=== PATIENT | female | born 1980 | race Caucasian/White ===

== ENCOUNTER 2019-10-03 15:42 | Emergency (ER) | payer OTHER, SELFPAY ==
--- NOTE | ~2019-10-03 | CT_ITS ---
EXAMINATION: CT lumbar spine wo con DATE: 10/03/2019 17:50 INDICATION: Low back pain TECHNIQUE: Computed tomography (CT) of the lumbar spine was performed without intravenous contrast. T he dose-length product was 1206.07 mGy-cm. Automated exposure control and iterative reconstruction te nique were employed. COMPARISON: No prior studies for comparison. FINDINGS: Vertebral body and disc heights are preserved. There is dextroscoliosis. No fracture or tra umatic malalignment. No evidence for spondylolisthesis. No paraspinal soft tissue abnormality. IMPRESSION: 1. No acute abnormality of the lumbar spine. Reviewed, dictated and finalized at location A.
[2019-10-03 16:50] VITALS: BP 137/76; PULSE 122; RESP 20; TEMP 36.9; O2SAT 99
--- NOTE | 2019-10-03 17:08 | ED.BACK ---
HPI - Back Pain/Injury General Chief Complaint: Back Pain/Injury Stated Complaint: back pain Time Seen by Provider: 10/03/19 17:14 Source: patient Mode of arrival: ambulatory Limitations: no limitations History of Present Illness HPI Narrative: 39-year-old woman comes in today complaining of sudden low back pain that started when she bent over the gestation. Patient states that she has had some back pain problems in the past but is gone many years without any difficulties. She states that at that time she had a painful send station shoot down both legs but she has had no lower extremity symptoms since. She has had no incontinence, weakness, numbness, tingling or difficulty walking. Her pain is somewhat positional. She has no history of back surgery however she did have back trauma when she was younger. She denies dysuria, hematuria, fever, nausea, vomiting. MD elicited complaint: back pain Pertinent past history: prior back pain Onset (ago): hour(s) (3) Timing: constant Severity: severe Similar Symptoms Previously: Yes Quality: sharp Location: lumbar spine Radiation: none Exacerbating factors: supine positioning Relieving factors: sitting upright and other ( standing) Context: bending Treatments prior to arrival: NSAIDS Work related injury: No Related Data Home Medications Medication Instructions Recorded Confirmed [id number] 1 tablet PO TID 01/08/19 10/03/19 cyclobenzaprine 10 mg PO TID 01/08/19 10/03/19 escitalopram oxalate 10 mg PO DAILY 01/08/19 10/03/19 naproxen 500 mg PO BID 01/08/19 10/03/19 rizatriptan 10 mg PO HS 01/08/19 10/03/19 Allergies Allergy/AdvReac Type Severity Reaction Status Date / Time aspirin Allergy Intermediate Swelling Unverified 06/10/18 11:08 Review of Systems Constitutional: Constitutional: Denies chills and Denies fever(s) Cardiovascular: Cardiovascular: Denies chest pain and Denies radiating jaw, neck or arm pain Respiratory: Respiratory: Denies cough, Denies dyspnea and Denies wheezing Gastrointestinal: Gastrointestinal: Denies abdominal pain, Denies nausea and Denies vomiting Genitourinary: Genitourinary: Denies nocturia and Denies dysuria Musculoskeletal: Musculoskeletal: Reports as per HPI, Reports back pain, Denies arthralgias and Denies joint swelling Integumentary/Breasts: Skin/Breast: Denies pruritus, Denies erythema and Denies rash Neurologic: Reports vertigo, Reports dizziness and Reports syncope Hematologic/Lymphatic: Hematologic/Lymphatic: Denies easy bleeding and Denies easy bruising Allergic/Immunologic: Allergic/Immunologic: Denies lip swelling and Denies wheezing [facility] Social History Social History Smoking status: Never smoker Alcohol intake: current Alcohol use details: rarely Substance use: never Living arrangements: with family Exam Const: General: healthy appearing and alert Nutritional Appearance: obese Orientation/consciousness: patient oriented x3 Other: moderate acute distress HENMT: Face and sinus: normal facial exam Eyes: Conjunctivae: conjunctivae normal Pupils: Equal, round and reactive pupils present EOM: EOMs intact bilaterally Chest: Chest palpation & inspection: tenderness Resp: Effort & Inspection: normal respiratory effort and not labored Auscultation: clear to auscultation bilaterally, no rales, no rhonchi and no wheezes Cardio: Rate: regular rate Rhythm: regular rhythm Heart sounds: no murmurs Skin: General skin exam: normal color, no jaundice and no pallor Rashes: no rashes Neuro: General: patient oriented x3, moves all extremities, no focal motor deficits and CN's II-XI intact bilaterally Speech: normal speech Gait exam (Neuro): Normal gait present Other: DTRs 1+ and symmetric Bilaterally at the calcaneal tendon in the patellar tendons. Normal strength at the toes ankles and knees bilaterally. Extrem: General: normal to i
[2019-10-03 17:13] LABS: Add Urine Microscopic? YES; Appearance Urine Cloudy (Clear); Bilirubin Urine Negative (Negative); Blood Urine Negative (Negative); Color Urine Yellow (Yellow); Glucose Urine UA Negative (Negative); Ketones Urine Negative (Negative); Leukocyte Esterase Ur Negative (Negative); Nitrate Urine Negative (Negative); Protein Urine Trace (Negative); Urobilinogen Urine 0.2 mg/dL (0.2-1.0)
[2019-10-03 17:16] LABS: Pregnancy On Board Control Positive; Urine Pregnancy Test Negative
[2019-10-03 17:21] LABS: RBC Urine 0-2 /hpf (0-2); Squamous Epithelial Cell Urine Few /hpf (Few); WBC Urine 0-3 /hpf (0-3)
[2019-10-03 17:22] LABS: Amorphous Sediment Urine Moderate; Bacteria Urine 4+ /hpf
[2019-10-03 18:19] VITALS: BP 147/72
== END 2019-10-03 18:21 | disposition home or self-care (01) ==
PROVIDERS: Emergency Provider Emergency Medicine
DX: S39.012A Strain of muscle, fascia and tendon of lower back, initial encounter (principal)
CPT/HCPCS: 72131; 81001; 81025; 99283; 99284; A9270

== ENCOUNTER 2020-04-22 08:01 | Outpatient (CLI) | payer OTHER, SELFPAY ==
[2020-04-22 08:28] LABS: Basophils Absolute Auto 0.06 K/mm3 (0.00-0.10); Basophils Percent Auto 0.9 % (0.0-1.0); Eosinophils Absolute Auto 0.24 K/mm3 (0.02-0.50); Eosinophils Percent Auto 3.5 % (1.0-6.0); Hematocrit 38.9 % (35.0-49.0); Hemoglobin 13.1 g/dL (12.0-15.0); Immature Granulocyte Absolute 0.02 K/mm3 (0.00-0.00); Immature Granulocyte Percent A 0.3 % (0.0-0.0); Lymphocytes Absolute Auto 2.31 K/mm3 (1.10-4.50); Lymphocytes Percent Auto 33.9 % (18.0-42.0); Mean Corpuscular HGB Conc 33.7 g/dL (32.0-36.0); Mean Corpuscular Hemoglobin 30.9 pg (27.0-31.0); Mean Corpuscular Volume 91.7 fL (78.0-102.0); Mean Platelet Volume 9.7 fl (9.2-11.8); Monocytes Absolute Auto 0.47 K/mm3 (0.10-0.90); Monocytes Percent Auto 6.9 % (2.0-11.0); Neutrophils Absolute Auto 3.7 K/mm3 (1.7-7.2); Neutrophils Percent Auto 54.5 % (50.0-70.0); Platelet Count Result 359 K/mm3 (150-420); Red Blood Count 4.24 M/mm3 (4.20-5.40); White Blood Count 6.8 K/mm3 (4.8-10.8)
[2020-04-22 08:41] LABS: Prothrombin Time 10.4 Seconds (9.50-12.10)
[2020-04-22 08:43] LABS: Hemoglobin A1C 5.9 % (<5.7)
[2020-04-22 10:01] LABS: Alanine Aminotransferase 27 U/L (14-59); Albumin Level 3.8 g/dL (3.4-5.0); Alkaline Phosphatase 66 U/L (46-116); Anion Gap 9 mmol/L (8-16); Aspartate Amino Transferase 15 U/L (15-37); Bilirubin,Total 0.3 mg/dL (0.00-1.00); Blood Urea Nitrogen 16 mg/dL (7-18); Calcium 8.8 mg/dL (8.5-10.1); Carbon Dioxide 26 mmol/L (21-32); Chloride 105 mmol/L (98-108); Cholesterol 203 mg/dL (0-200); Estimated Glomerular Filt Rate > 60; Ferritin 35 ng/mL (8-252); Folic Acid 13.9 ng/mL (8.6->20); Free T3 2.83 pg/mL (2.18-3.98); Free T4 Free Thyroxine 0.82 ng/dL (0.76-1.46); GGT 28 U/L (5-55); Glucose 114 mg/dL (70-99); HDL Direct 59 mg/dL (40-60); Iron 88 ug/dL (50-170); LDL Cholesterol Calculated 128 mg/dL (<130); Magnesium 1.8 mg/dL (1.8-2.4); Osmolality Calculated 292 mOsm/kg (285-295); Percent Iron Saturation 28 % (12-57); Phosphorus 2.6 mg/dL (2.6-4.7); Potassium 4.4 mmol/L (3.5-5.1); Sodium 140 mmol/L (136-145); Total Protein 6.5 g/dL (6.4-8.2); Triglycerides 79 mg/dL (0-150); Uric Acid 4.9 mg/dL (2.6-6.0); Vitamin B12 321 pg/mL (193-986)
[2020-04-22 10:10] LABS: CRP < 0.2 mg/dL (0.0-0.9); Thyroid Stimulating Hormone Reflex 0.98 u/IU/mL (0.36-3.74)
[2020-04-22 10:20] LABS: Bilirubin Urine Negative (Negative); Blood Urine Negative (Negative); Color Urine Yellow (Yellow); Glucose Urine UA Negative (Negative); Ketones Urine Negative (Negative); Leukocyte Esterase Ur Negative (Negative); Nitrate Urine Negative (Negative); Protein Urine Negative (Negative); Urobilinogen Urine 0.2 mg/dL (0.2-1.0)
[2020-04-22 10:23] LABS: Add Urine Microscopic? NO; Appearance Urine Clear (Clear)
[2020-04-22 10:37] LABS: Creatinine Urine 64.03 mg/dL (40-278); MALB Creatinine Ratio 20.3 mg/g (0-30); Microalbumin Urine Random < 13.0 mg/L
[2020-04-25 06:02] LABS: CRP, High Sensitivity 2.8 mg/L (***)
[2020-04-27 02:44] LABS: Vitamin D 25 Hydroxy 10 ng/mL (30-100)
== END 2020-04-22 08:02 | disposition home or self-care (01) ==
DX: E88.81 Metabolic syndrome and other insulin resistance (principal); Z79.899 Other long term (current) drug therapy; E03.9 Hypothyroidism, unspecified; K76.0 Fatty (change of) liver, not elsewhere classified; R73.9 Hyperglycemia, unspecified; E78.5 Hyperlipidemia, unspecified; E79.0 Hyperuricemia without signs of inflammatory arthritis and tophaceous disease; E55.9 Vitamin D deficiency, unspecified; E53.8 Deficiency of other specified B group vitamins
CPT/HCPCS: 36415; 80053; 80061; 81003; 82043; 82306; 82607; 82728; 82746; 82977; 83036; 83525; 83540; 83550; 83735; 84100; 84439; 84443; 84481; 84550; 85025; 85610; 86140; 86141; 87086; 87088

== ENCOUNTER 2020-08-28 07:42 | Outpatient (CLI) | payer OTHER, SELFPAY ==
--- NOTE | ~2020-08-28 | US_ITS ---
US abdomen complete EXAMINATION: US Abdomen Complete INDICATION: Fatty liver PROCEDURE: Realtime High Resolution abdomen ultrasound. COMPARISON: No prior studies for comparison FINDINGS: Gallbladder within normal limits. No gallstones, pericholecystic fluid, gallbladder wall t hickening or biliary dilatation. Common bile duct measures 4.75 mm. Liver echotexture within normal limits without focal mass. Pancreas within normal limits. Pancreati c tail is obscured by bowel gas. Spleen is unremarkeable. Renal echotexture is within normal limits bilaterally without hydronephrosis, contour deforming mass or renal stone. Right kidney measures 9.9 cm. Left kidney measures 10.9 cm. Visualized aspects of the aorta and IVC are within normal limits. Portal vein is patent. No sonograph ic Hernandez's sign indicated by the technologist. IMPRESSION: 1: Normal abdominal ultrasound. Reviewed, dictated and finalized at location B.
--- NOTE | ~2020-08-28 | US_ITS ---
EXAMINATION: US pelvic complete w TV DATE: 08/28/2020 10:53 INDICATION: Dysmenorrhea Comparison:No prior studies for comparison. TECHNIQUE: Multiple transabdominal and endovaginal sonographic images of the pelvis performed. FINDINGS: The uterus measures 7.9 x 4.1 x 5.1 cm. The endometrial complex measures 11 mm. The right ovary measures 2.4 x 1.7 x 2.3 cm and the left ovary measures 2.5 x 2.6 x 1.7 cm. There ar e small follicles in each ovary. Normal doppler signal in both ovaries. There is no free fluid in the pelvis. There are no abnormal masses seen on either side. IMPRESSION: 1. Unremarkable pelvic ultrasound. Reviewed, dictated and finalized at location B.
== END 2020-08-28 07:43 | disposition home or self-care (01) ==
LOC: CHSIMG 07:47
PROVIDERS: Visit Provider Obstetrics & Gynecology
DX: N94.6 Dysmenorrhea, unspecified (principal); N92.0 Excessive and frequent menstruation with regular cycle
CPT/HCPCS: 76700; 76830; 76856

== ENCOUNTER 2021-09-02 08:19 | Outpatient (CLI) | payer OTHER, SELFPAY ==
[2021-09-02 09:03] LABS: Add Urine Microscopic? YES; Appearance Urine Clear (Clear); Basophils Absolute Auto 0.05 K/mm3 (0.00-0.10); Basophils Percent Auto 1.2 % (0.0-1.0); Bilirubin Urine Negative (Negative); Blood Urine Negative (Negative); Color Urine Light Yellow (Yellow); Eosinophils Absolute Auto 0.21 K/mm3 (0.02-0.50); Eosinophils Percent Auto 5.1 % (1.0-6.0); Glucose Urine UA Negative (Negative); Hematocrit 33.7 % (35.0-49.0); Hemoglobin 10.6 g/dL (12.0-15.0); Immature Granulocyte Absolute 0.01 K/mm3 (0.00-0.00); Immature Granulocyte Percent A 0.2 % (0.0-0.0); Ketones Urine Negative (Negative); Leukocyte Esterase Ur 2+ (Negative); Lymphocytes Absolute Auto 0.88 K/mm3 (1.10-4.50); Lymphocytes Percent Auto 21.2 % (18.0-42.0); Mean Corpuscular HGB Conc 31.5 g/dL (32.0-36.0); Mean Corpuscular Hemoglobin 27.1 pg (27.0-31.0); Mean Corpuscular Volume 86.2 fL (78.0-102.0); Mean Platelet Volume 9.5 fl (9.2-11.8); Monocytes Absolute Auto 0.34 K/mm3 (0.10-0.90); Monocytes Percent Auto 8.2 % (2.0-11.0); Neutrophils Absolute Auto 2.7 K/mm3 (1.7-7.2); Neutrophils Percent Auto 64.1 % (50.0-70.0); Nitrate Urine Negative (Negative); Platelet Count Result 286 K/mm3 (150-420); Protein Urine Negative (Negative); Red Blood Count 3.91 M/mm3 (4.20-5.40); Urobilinogen Urine 0.2 mg/dL (0.2-1.0); White Blood Count 4.2 K/mm3 (4.8-10.8)
[2021-09-02 09:15] LABS: Bacteria Urine Trace /hpf; INR 0.9; Prothrombin Time 10.4 Seconds (9.50-12.10); RBC Urine None seen /hpf (0-2); Squamous Epithelial Cell Urine Rare /hpf (Few)
[2021-09-02 09:32] LABS: MALB Creatinine Ratio 11.6 mg/g (0-30); Microalbumin Urine Random 32.2 mg/L
[2021-09-02 09:44] LABS: Hemoglobin A1C 5.8 % (<5.7)
[2021-09-02 10:07] LABS: Alanine Aminotransferase 23 U/L (14-59); Alkaline Phosphatase 86 U/L (46-116); Anion Gap 7 mmol/L (8-16); Aspartate Amino Transferase 19 U/L (15-37); Bilirubin,Total 0.3 mg/dL (0.00-1.00); Blood Urea Nitrogen 20 mg/dL (7-18); CRP < 0.5 mg/dL (0.0-0.9); Calcium 9.2 mg/dL (8.5-10.1); Carbon Dioxide 29 mmol/L (21-32); Chloride 106 mmol/L (98-108); Cholesterol 199 mg/dL (0-200); Estimated Glomerular Filt Rate > 60; Free T3 2.62 pg/mL (2.18-3.98); Free T4 Free Thyroxine 0.82 ng/dL (0.76-1.46); GGT 21 U/L (5-55); Glucose 106 mg/dL (70-99); HDL Direct 56 mg/dL (40-60); Iron 28 ug/dL (50-170); LDL Cholesterol Calculated 129 mg/dL (<130); Magnesium 1.8 mg/dL (1.8-2.4); Osmolality Calculated 296 mOsm/kg (285-295); Percent Iron Saturation 6 % (12-57); Phosphorus 4.3 mg/dL (2.6-4.7); Potassium 4.6 mmol/L (3.5-5.1); Sodium 142 mmol/L (136-145); Triglycerides 68 mg/dL (0-150); Uric Acid 5.4 mg/dL (2.6-6.0); Vitamin B12 260 pg/mL (193-986)
[2021-09-02 10:08] LABS: Thyroid Stimulating Hormone Reflex 1.21 u/IU/mL (0.36-3.74)
[2021-09-05 14:16] LABS: Insulin Level Total 11.5 uIU/mL (<=19.6)
[2021-09-06 03:46] LABS: Vitamin D 25 Hydroxy 29 ng/mL (30-100)
== END 2021-09-02 08:20 | disposition home or self-care (01) ==
LOC: CHSLAB 08:24
DX: R73.9 Hyperglycemia, unspecified (principal); Z79.899 Other long term (current) drug therapy; E61.1 Iron deficiency; E03.9 Hypothyroidism, unspecified; K76.0 Fatty (change of) liver, not elsewhere classified; E78.5 Hyperlipidemia, unspecified; E79.0 Hyperuricemia without signs of inflammatory arthritis and tophaceous disease
CPT/HCPCS: 36415; 80053; 80061; 81001; 82043; 82306; 82607; 82746; 82977; 83036; 83525; 83540; 83550; 83735; 84100; 84439; 84443; 84481; 84550; 85025; 85610; 86140; 87086

== ENCOUNTER 2022-03-21 09:10 | Emergency (ER) | payer OTHER, SELFPAY ==
[2022-03-21 09:19] VITALS: BP 114/66; PULSE 107; RESP 16; TEMP 36.3; O2SAT 100
[2022-03-21 09:25] VITALS: BP 114/66; PULSE 107; RESP 16; TEMP 36.3; O2SAT 100
--- NOTE | 2022-03-21 09:33 | ED.GENADULT ---
HPI - General Adult General Chief complaint: Upper Respiratory Infection Stated complaint: cough, congestion Source: patient Mode of arrival: ambulatory Limitations: no limitations History of Present Illness HPI narrative: Patient presents for evaluation of sick symptoms for the last two and a half days. Symptoms include sinus congestion, mucopurulent discharge from nares, mild sore throat and cough. She denies any fever, chills, nausea, vomiting or diarrhea. Her has similar symptoms and is being treated with prednisone and amoxicillin. She has had COVID twice in the past, with most recent episode being last year. She has a hx of breast cancer s/p mastectomy, currently in remission. No additional complaints or concerns. Related Data Home Medications Medication Instructions Recorded Confirmed jxltpzywqz-imhhilsanvwqt-[id number] 1 tablet PO TID 01/08/19 03/21/22 50 mg-325 mg-40 mg tablet atenolol 25 mg tablet 25 mg PO DAILY 03/21/22 03/21/22 ergocalciferol (vitamin D2) 1,250 1 unit PO WEEKLY 03/21/22 03/21/22 mcg (50,000 unit) capsule escitalopram oxalate 20 mg tablet 20 mg PO DAILY 03/21/22 03/21/22 tirzepatide 15 mg/0.5 mL 15 mg subcut WEEKLY 03/21/22 03/21/22 subcutaneous pen injector (Mounjaro) trazodone 50 mg tablet 100 mg PO HS 03/21/22 03/21/22 Allergies Allergy/AdvReac Type Severity Reaction Status Date / Time aspirin Allergy Intermediate Swelling Unverified 03/21/22 09:18 Review of Systems Review of Systems: CONSTITUTIONAL: Denies fever, chills, or sweats. EYES: Denies visual changes, redness, or discharge. ENT: Reports sinus congestion, mucopurulent discharge from nares and sore throat CARDIOVASCULAR: Denies chest pain, palpitations, or edema. RESPIRATORY: Reports cough. Denies SOB. GASTROINTESTINAL: Denies abdominal pain, nausea, vomiting, or diarrhea. GENITOURINARY: Denies dysuria or hematuria. SKIN: Denies rash or itching. MUSCULOSKELETAL: Denies back pain, joint pain, or myalgia. NEUROLOGIC: Denies headache, numbness, dizziness, or weakness. PSYCHIATRIC: Denies anxiety or depression. [facility] Past Medical History Medical History Breast cancer Surgical History Surgical History History of breast implant History of hysterectomy History of mastectomy Family History Family History Mother Family history non-contributory Social History Social History Smoking status: Never smoker Alcohol intake: current Alcohol use details: rarely Substance use: never Gender identity (if verbalized by the patient): Female Sexual Orientation (if Verbalized by the Patient): Straight or Heterosexual Spiritual care concerns: No Exam Narrative: GENERAL: Well-appearing, well-nourished, and in no acute distress. HEAD: Normocephalic, atraumatic. EYES: PERRLA and EOMI. ENT: Bilateral maxillary sinus tenderness. Mucopurulent discharge noted in nares bilaterally. Mucous membranes moist. Oropharynx without tonsillar hypertrophy exudate or other lesions. Hoarse voice.Bilateral TMs pearly nevarez nonbulging NECK: Supple. No adenopathy or masses. No carotid bruits or JVD CHEST: Clear to auscultation. No respiratory distress. No wheezes rales or rhonchi HEART: Regular rate and rhythm. No murmur heard. Normal peripheral pulses. ABDOMEN: Soft, nontender, nondistended, normal active bowel sounds. EXTREMITIES: Normal range of motion. No edema. SKIN: Warm, dry, no rash. NEURO: No focal deficits. Alert and oriented x3. PSYCH: Normal mood and affect. Course Course Emergency Course: This is a 41-year-old female who presented for evaluation of sick symptoms. She meets criteria for ABRS given nature of her discharge. Furthermore, she has a hx of breast
== END 2022-03-21 09:35 | disposition home or self-care (01) ==
PROVIDERS: Emergency Provider Nurse Practitioner
DX: J32.9 Chronic sinusitis, unspecified (principal); Z85.3 Personal history of malignant neoplasm of breast
CPT/HCPCS: 99213; G0463

== ENCOUNTER 2022-03-24 10:19 | Outpatient (CLI) | payer OTHER, SELFPAY ==
[2022-03-24 11:11] LABS: Influenza A QL RT-PCR Negative (Negative); Influenza B QL RT-PCR Negative (Negative); SARS-CoV-2 RNA PCR Negative (Negative)
[2022-03-24 11:13] LABS: RSV RNA, RT-PCR Negative (Negative)
== END 2022-03-24 10:20 | disposition home or self-care (01) ==
DX: R05.1 Acute cough (principal); R05.8 Other specified cough; Z20.822 Contact with and (suspected) exposure to COVID-19
CPT/HCPCS: 87637

== ENCOUNTER 2022-05-28 10:59 | Emergency (ER) | payer OTHER, SELFPAY ==
--- NOTE | ~2022-05-28 | CT_ITS ---
EXAMINATION: CT abdomen pelvis wo con DATE: 05/28/2022 12:19 INDICATION: Bilateral flank pain TECHNIQUE: Computed tomography (CT) of the abdomen and pelvis was performed without intravenous contr ast. The dose-length product (DLP) was 742.61 mGy-cm. Automated exposure control and iterative recons truction technique were employed. COMPARISON: None FINDINGS: Minimal dependent atelectasis is present in the lung bases. The heart size is normal. The l iver, spleen, pancreas, gallbladder, and adrenal glands are normal. The right kidney is unremarkable. There is a 2 mm nonobstructing stone of the left kidney. No stones are identified in the kidneys, ur eters, or bladder. No hydronephrosis or hydroureter. No pathologically enlarged abdominal or pelvic l ymph nodes are identified. No free intraperitoneal gas or evidence of bowel obstruction. A moderate v olume of colonic stool is present. The appendix is normal. There is a small umbilical hernia containi ng fat. There is mild fat stranding surrounding the urinary bladder. IMPRESSION: 1. Nonobstructing left nephrolithiasis. 2. Fat stranding surrounding the urinary bladder which could reflect cystitis. Reviewed, dictated and finalized at location A.
[2022-05-28 10:59] VITALS: BP 109/85; PULSE 112; RESP 16; TEMP 36.4; O2SAT 96
--- NOTE | 2022-05-28 11:12 | ED.FEMALEGU ---
HPI - Female Genitourinary General Chief complaint: Urogenital-Female Stated complaint: low back pain/abdominal pain/blood in urine Time Seen by Provider: 05/28/22 11:11 Source: patient Mode of arrival: ambulatory Limitations: no limitations History of Present Illness HPI Narrative: [age] year female breast cancer status post bilateral mastectomy, hysterectomy with breast reconstruction, kidney stones presents to the ER with a 6 hour history of -- hematuria without any dysuria -- bilateral flank pain with abdominal pain no fever or chills. Related Data Home Medications Medication Instructions Recorded Confirmed ergocalciferol (vitamin D2) 1,250 1 unit PO WEEKLY 03/21/22 05/28/22 mcg (50,000 unit) capsule escitalopram oxalate 20 mg tablet 20 mg PO DAILY 03/21/22 05/28/22 tirzepatide 15 mg/0.5 mL 15 mg subcut WEEKLY 03/21/22 05/28/22 subcutaneous pen injector (Mounjaro) gabapentin 300 mg capsule 300 mg PO TID 05/28/22 05/28/22 Allergies Allergy/AdvReac Type Severity Reaction Status Date / Time aspirin Allergy Intermediate Swelling Verified 05/28/22 11:09 [facility] Past Medical History Medical History (Updated 05/28/22 @ 12:45 by Camilo Leary MD) Breast cancer Surgical History Surgical History History of breast implant History of hysterectomy History of mastectomy Family History Family History Mother Family history non-contributory Social History Social History Smoking status: Never smoker Alcohol intake: current Alcohol use details: rarely Substance use: never Living arrangements: with family Gender identity (if verbalized by the patient): Female Sexual Orientation (if Verbalized by the Patient): Straight or Heterosexual Spiritual care concerns: No Course Course Emergency Course: abdominal pain/ flank pain /hematuria-- rule out kidney stone /urinary tract infection Vital Signs Vital signs: Vital Signs Temperature 36.4 C 05/28/22 10:59 Pulse Rate 112 H 05/28/22 10:59 Respiratory Rate 16 05/28/22 10:59 Blood Pressure 109/85 05/28/22 10:59 Pulse Oximetry 96 05/28/22 10:59 Oxygen Delivery Room Air 05/28/22 10:59 Temperature 36.4 C 05/28/22 11:13 Pulse Rate 112 H 05/28/22 11:13 Respiratory Rate 16 05/28/22 11:13 Blood Pressure 109/85 05/28/22 11:13 Pulse Oximetry 96 05/28/22 11:13 Oxygen Delivery Room Air 05/28/22 11:13 MDM - Female Genitourinary MDM Narrative Medical decision making narrative: urinary tract infection without any evidence of stone. no evidence of pyelonephritis. Differential Diagnosis Differential diagnosis: Likely urinary tract infection and cystitis Lab Data Attestation: I reviewed the patient's lab results. 05/28/22 11:34 05/28/22 11:34 Labs: Lab Results 05/28/22 05/28/22 05/28/22 Range/Units 11:23 11:34 11:34 WBC 8.5 (4.8-10.8) K/mm3 RBC 3.73 L (4.20-5.40) M/mm3 Hgb 11.2 L (12.0-15.0) g/dL Hct 34.4 L (35.0-49.0) % MCV 92.2 (78.0-102.0) fL MCH 30.0 (27.0-31.0) pg MCHC 32.6 (32.0-36.0) g/dL RDW 12.7 (11.6-14.4) % Plt Count 224 (150-420) K/mm3 MPV 8.8 L (9.2-11.8) fl Immature Gran % (Auto) 0.4 H (0.0-0.0) % Neut % (Auto) 81.2 H (50.0-70.0) % Lymph % (Auto) 10.6 L (18.0-42.0) % Glascock % (Auto) 5.9 (2.0-11.0) % Eos % (Auto) 1.4 (1.0-6.0) % Baso % (Auto) 0.5 (0.0-1.0) % Lymph # (Auto) 0.90 L (1.10-4.50) K/mm3 Glascock # (Auto) 0.50 (0.10-0.90) K/mm3 Eos # (Auto) 0.12 (0.02-0.50) K/mm3 Baso # (Auto) 0.04 (0.00-0.10) K/mm3 Abs Immat Gran (auto) 0.03 H (0.00-0.00) K/mm3 Absolute Neuts (auto) 6.9 (1.7-7.2) K/mm3 Absolute Nucleated RBC 0.00 (0.00-0.00) K/mm3 Nucleated RBC %
[2022-05-28 11:13] VITALS: BP 109/85; PULSE 112; RESP 16; TEMP 36.4; O2SAT 96
[2022-05-28 11:38] LABS: Basophils Absolute Auto 0.04 K/mm3 (0.00-0.10); Basophils Percent Auto 0.5 % (0.0-1.0); Eosinophils Absolute Auto 0.12 K/mm3 (0.02-0.50); Eosinophils Percent Auto 1.4 % (1.0-6.0); Hematocrit 34.4 % (35.0-49.0); Hemoglobin 11.2 g/dL (12.0-15.0); Immature Granulocyte Absolute 0.03 K/mm3 (0.00-0.00); Immature Granulocyte Percent A 0.4 % (0.0-0.0); Lymphocytes Percent Auto 10.6 % (18.0-42.0); Mean Corpuscular HGB Conc 32.6 g/dL (32.0-36.0); Mean Corpuscular Volume 92.2 fL (78.0-102.0); Mean Platelet Volume 8.8 fl (9.2-11.8); Monocytes Percent Auto 5.9 % (2.0-11.0); Neutrophils Absolute Auto 6.9 K/mm3 (1.7-7.2); Neutrophils Percent Auto 81.2 % (50.0-70.0); Platelet Count Result 224 K/mm3 (150-420); Red Blood Count 3.73 M/mm3 (4.20-5.40); Red Cell Distribution Width 12.7 % (11.6-14.4); White Blood Count 8.5 K/mm3 (4.8-10.8)
[2022-05-28 11:44] LABS: Appearance Urine Turbid (Clear); Bilirubin Urine Negative (Negative); Blood Urine 3+ (Negative); Color Urine Yellow (Yellow); Glucose Urine UA Negative (Negative); Ketones Urine Negative (Negative); Leukocyte Esterase Ur 3+ LEU/UL (Negative); Nitrate Urine Positive (Negative); Protein Urine 2+ (Negative); Specific Grav Ur 1.025 (1.010-1.020); Urobilinogen Urine 0.2 mg/dL (0.2-1.0)
[2022-05-28 11:49] LABS: Add Urine Microscopic? YES; Bacteria Urine 1+ /hpf; Squamous Epithelial Cell Urine Few /hpf (Few); WBC Urine >75 /hpf (0-3)
[2022-05-28 11:49] LABS: Lipase 46 U/L (16-77)
[2022-05-28 11:50] LABS: Prothrombin Time 10.6 Seconds (9.50-12.10)
[2022-05-28 11:52] LABS: Alanine Aminotransferase 24 U/L (14-59); Albumin Level 3.4 g/dL (3.4-5.0); Alkaline Phosphatase 66 U/L (46-116); Anion Gap 8 mmol/L (8-16); Aspartate Amino Transferase 16 U/L (15-37); Bilirubin,Total 0.4 mg/dL (0.00-1.00); Blood Urea Nitrogen 19 mg/dL (7-18); Calcium 8.8 mg/dL (8.5-10.1); Carbon Dioxide 29 mmol/L (21-32); Chloride 107 mmol/L (98-108); Estimated CRCL calculation 83 ml/min; Estimated Glomerular Filt Rate > 60; Glucose 115 mg/dL (70-99); Osmolality Calculated 301 mOsm/kg (285-295); Sodium 144 mmol/L (136-145); Total Protein 6.6 g/dL (6.4-8.2)
[2022-05-28 11:57] LABS: Lactic Acid Reflex 0.9 mmol/L (0.4-2.0)
[2022-05-28 12:50] VITALS: BP 109/85; PULSE 104; RESP 18; TEMP 36.6; O2SAT 96
[2022-05-28] MEDS: HYDROmorphone HCL INJ (*CRX) 2 MG/ML VIAL 0.5 MG IM (12:59)
[2022-05-28] MEDS: ONDANSETRON HCL ODT 4 MG TABLET PO (12:59)
== END 2022-05-28 13:05 | disposition home or self-care (01) ==
PROVIDERS: Emergency Provider Internal Medicine Critical Care Medicine
DX: N30.91 Cystitis, unspecified with hematuria (principal); R10.9 Unspecified abdominal pain; Z85.3 Personal history of malignant neoplasm of breast
CPT/HCPCS: 36415; 74176; 80053; 81001; 83605; 83690; 85025; 85610; 87086; 87088; 96372; 99284; A9270; J1170

== ENCOUNTER 2022-11-23 16:44 | Outpatient (CLI) | payer OTHER, SELFPAY ==
[2022-11-23 17:09] LABS: Appearance Urine Clear (Clear); Basophils Absolute Auto 0.06 K/mm3 (0.00-0.10); Basophils Percent Auto 1.1 % (0.0-1.0); Bilirubin Urine Negative (Negative); Blood Urine Negative (Negative); Color Urine Light Yellow (Yellow); Eosinophils Absolute Auto 0.15 K/mm3 (0.02-0.50); Eosinophils Percent Auto 2.7 % (1.0-6.0); Glucose Urine UA Negative (Negative); Hematocrit 37.4 % (35.0-49.0); Hemoglobin 12.6 g/dL (12.0-15.0); Immature Granulocyte Absolute 0.01 K/mm3 (0.00-0.00); Immature Granulocyte Percent A 0.2 % (0.0-0.0); Ketones Urine Negative (Negative); Leukocyte Esterase Ur Negative (Negative); Lymphocytes Absolute Auto 2.14 K/mm3 (1.10-4.50); Lymphocytes Percent Auto 38.4 % (18.0-42.0); Mean Corpuscular HGB Conc 33.7 g/dL (32.0-36.0); Mean Corpuscular Hemoglobin 31.7 pg (27.0-31.0); Mean Platelet Volume 9.5 fl (9.2-11.8); Monocytes Absolute Auto 0.44 K/mm3 (0.10-0.90); Monocytes Percent Auto 7.9 % (2.0-11.0); Neutrophils Absolute Auto 2.8 K/mm3 (1.7-7.2); Neutrophils Percent Auto 49.7 % (50.0-70.0); Nitrate Urine Negative (Negative); Platelet Count Result 289 K/mm3 (150-420); Protein Urine Negative (Negative); Red Blood Count 3.98 M/mm3 (4.20-5.40); Red Cell Distribution Width 12.2 % (11.6-14.4); Urobilinogen Urine 0.2 mg/dL (0.2-1.0); White Blood Count 5.6 K/mm3 (4.8-10.8)
[2022-11-23 17:14] LABS: Creatinine Urine 39.15 mg/dL (40-278); MALB Creatinine Ratio 33.2 mg/g (0-30); Microalbumin Urine Random < 13.0 mg/L
[2022-11-23 17:16] LABS: Add Urine Microscopic? NO
[2022-11-23 17:23] LABS: INR 0.9; Prothrombin Time 10.3 Seconds (9.50-12.10)
[2022-11-23 17:39] LABS: Hemoglobin A1C 5.3 % (<5.7)
[2022-11-23 17:55] LABS: Alanine Aminotransferase 21 U/L (14-59); Alkaline Phosphatase 60 U/L (46-116); Anion Gap 8 mmol/L (8-16); Aspartate Amino Transferase 19 U/L (15-37); Bilirubin,Total 0.3 mg/dL (0.00-1.00); Blood Urea Nitrogen 10 mg/dL (7-18); Calcium 9.5 mg/dL (8.5-10.1); Carbon Dioxide 29 mmol/L (21-32); Chloride 103 mmol/L (98-108); Cholesterol 208 mg/dL (0-200); Estimated Glomerular Filt Rate > 60; Ferritin 23 ng/mL (8-252); Free T3 2.62 pg/mL (2.18-3.98); Free T4 Free Thyroxine 0.78 ng/dL (0.76-1.46); GGT 20 U/L (5-55); Glucose 82 mg/dL (70-99); HDL Direct 65 mg/dL (40-60); Iron 59 ug/dL (50-170); LDL Cholesterol Calculated 129 mg/dL (<130); Osmolality Calculated 288 mOsm/kg (285-295); Percent Iron Saturation 19 % (12-57); Phosphorus 4.5 mg/dL (2.6-4.7); Potassium 4.2 mmol/L (3.5-5.1); Sodium 140 mmol/L (136-145); Thyroid Stimulating Hormone 1.88 uIU/mL (0.36-3.74); Total Protein 6.7 g/dL (6.4-8.2); Triglycerides 69 mg/dL (0-150); Uric Acid 4.3 mg/dL (2.6-6.0); Vitamin B12 302 pg/mL (193-986)
[2022-11-23 18:00] LABS: CRP < 0.5 mg/dL (0.0-0.9)
[2022-11-23 18:01] LABS: Folic Acid > 20.0 ng/mL (8.6->20)
[2022-11-26 15:25] LABS: Insulin Level Total 1.3 uIU/mL (<=19.6)
[2022-11-29 13:12] LABS: Vitamin D 25 Hydroxy 51 ng/mL (30-100)
== END 2022-11-23 16:45 | disposition home or self-care (01) ==
LOC: CHSLAB 16:51
DX: E88.81 Metabolic syndrome and other insulin resistance (principal); Z79.899 Other long term (current) drug therapy; E61.1 Iron deficiency; E03.9 Hypothyroidism, unspecified; K76.0 Fatty (change of) liver, not elsewhere classified; R73.9 Hyperglycemia, unspecified
CPT/HCPCS: 36415; 80053; 80061; 81003; 82043; 82306; 82607; 82728; 82746; 82977; 83036; 83525; 83540; 83550; 83735; 84100; 84439; 84443; 84481; 84550; 85025; 85610; 86140; 87086

== ENCOUNTER 2022-12-26 20:10 | Emergency (ER) | payer OTHER, SELFPAY ==
--- NOTE | ~2022-12-26 | CT_ITS ---
EXAMINATION: CT abdomen pelvis wo con DATE: 12/26/2022 22:17 INDICATION: pain in RIGHT FLANK.HISTORY OF STONES. hx of breast CA. TECHNIQUE: Computed tomography (CT) of the abdomen and pelvis was performed without intravenous contr ast. Automated exposure control and iterative reconstruction technique were employed. The dose-length product was 674.47 mGy-cm. COMPARISON: 05/28/2022. FINDINGS: Lower thorax: Bilateral breast reconstruction. Minimal peripheral fibrosis in the right middle lobe w ith scar laterally. Liver: Normal. Biliary/Gallbladder: Gallbladder is normal. No bile duct dilation. Pancreas: No mass or duct dilation. Spleen: Normal. Adrenals:No mass. Kidneys: No suspicious mass, obstructing stone, or hydronephrosis. Punctate nonobstructing left midpo le calcification. GI tract: No small or large bowel dilation. Normal appendix. Mesentery/Peritoneum: No ascites, mass, or free air. Retroperitoneum: No mass. Pelvis: Pelvic organs are within normal limits. Soft Tissues: Soft tissues and body wall unremarkable. Bones: No acute osseous finding. IMPRESSION: No acute abdominopelvic process detected. Reviewed, dictated and finalized at location K.
[2022-12-26 20:10] VITALS: BP 131/90; PULSE 81; RESP 20; TEMP 37.2; O2SAT 99
--- NOTE | 2022-12-26 20:32 | ED.GENADULT ---
HPI - General Adult General Chief complaint: Abdominal Pain Stated complaint: Low back pain Time Seen by Provider: 12/26/22 20:32 History of Present Illness HPI narrative: The patient is a 42-year-old woman with history of breast cancer, status post mastectomy and reconstruction, prior abdominal flap, prior hysterectomy. Has had UTIs and was seen here in May 2022 for UTI. At that time she also had a 2 mm left kidney stone in the kidney that was not causing any symptoms. She now presents with a 4 day history of lower back pain, right more than left, still present, increasing today, not associated with any other symptoms. Minimal nausea earlier, no vomiting. No abdominal or flank pain. No hematuria or dysuria or urinary urgency or frequency. No hematochezia or melena or diarrhea or constipation. No URI symptoms such as cough rhinorrhea or nasal congestion or fevers or chills or diaphoresis. She is worried about her breast cancer recurrence causing her back pain. She is also worried about perhaps a kidney stone or urinary tract infection. Related Data Home Medications Medication Instructions Recorded Confirmed ergocalciferol (vitamin D2) 1,250 1 unit PO WEEKLY 03/21/22 12/26/22 mcg (50,000 unit) capsule escitalopram oxalate 20 mg tablet 20 mg PO DAILY 03/21/22 12/26/22 tirzepatide 15 mg/0.5 mL 15 mg subcut WEEKLY 03/21/22 12/26/22 subcutaneous pen injector (Mounjaro) gabapentin 300 mg capsule 300 mg PO TID 05/28/22 12/26/22 Allergies Allergy/AdvReac Type Severity Reaction Status Date / Time aspirin Allergy Intermediate Swelling Verified 05/28/22 11:09 Review of Systems Review of Systems: All systems reviewed & are unremarkable except as noted in HPI and below Constitutional: Constitutional: Denies chills, Denies excessive sweating, Denies fatigue, Denies fever(s), Denies headache(s) and Denies weakness Eyes: Eyes: Denies change in vision and Denies photophobia ENT: Denies dysphagia, Denies dizziness, Denies headache(s), Denies lip swelling, Denies nasal congestion, Denies sore throat and Denies tongue swelling Cardiovascular: Cardiovascular: Denies chest pain, Denies syncope, Denies rapid heart rate and Denies dyspnea Respiratory: Respiratory: Denies cough, Denies dyspnea and Denies wheezing Gastrointestinal: Gastrointestinal: Denies abdominal pain, Denies constipation, Denies dysphagia, Denies diarrhea, Denies nausea and Denies vomiting Genitourinary: Genitourinary: Denies hematuria, Denies urinary frequency, Denies dysuria and Denies urinary urgency Musculoskeletal: Musculoskeletal: Reports back pain, Denies myalgias, Denies arthralgias, Denies joint swelling and Denies numbness Integumentary/Breasts: Skin/Breast: Denies pruritus, Denies erythema and Denies rash Neurologic: Denies confusion, Denies dizziness, Denies syncope, Denies headache(s), Denies focal weakness, Denies numbness and Denies weakness Psychiatric: Psychiatric: Denies anxiety and Denies confusion Endocrine: Endocrine: Denies excessive sweating and Denies fatigue Hematologic/Lymphatic: Hematologic/Lymphatic: Denies easy bleeding and Denies easy bruising Allergic/Immunologic: Allergic/Immunologic: Denies lip swelling, Denies tongue swelling and Denies wheezing PMFSH Past Medical History Medical History Breast cancer Surgical History Surgical History History of breast implant History of hysterectomy History of mastectomy Family History Family History Mother Family history non-contributory Social History Social History Smoking status: Never smoker Alcohol intake: current Alcohol use details: rarely Substance use: never Living arrangements: with family Gender identity (if verbalized by the patient): Fem
[2022-12-26 20:34] LABS: Add Urine Microscopic? NO; Appearance Urine Clear (Clear); Bilirubin Urine Negative (Negative); Blood Urine Negative (Negative); Color Urine Light Yellow (Yellow); Glucose Urine UA Negative (Negative); Ketones Urine Negative (Negative); Leukocyte Esterase Ur Negative LEU/UL (Negative); Nitrate Urine Negative (Negative); Protein Urine Negative (Negative); Specific Grav Ur 1.025 (1.010-1.020); Urobilinogen Urine 0.2 mg/dL (0.2-1.0); pH Urine 6.5 (5.0-8.0)
[2022-12-26 21:01] LABS: Basophils Absolute Auto 0.05 K/mm3 (0.00-0.10); Basophils Percent Auto 0.9 % (0.0-1.0); Eosinophils Absolute Auto 0.18 K/mm3 (0.02-0.50); Eosinophils Percent Auto 3.3 % (1.0-6.0); Hematocrit 34.1 % (35.0-49.0); Hemoglobin 11.2 g/dL (12.0-15.0); Lymphocytes Absolute Auto 2.17 K/mm3 (1.10-4.50); Lymphocytes Percent Auto 39.9 % (18.0-42.0); Mean Corpuscular HGB Conc 32.8 g/dL (32.0-36.0); Mean Corpuscular Hemoglobin 31.4 pg (27.0-31.0); Mean Corpuscular Volume 95.5 fL (78.0-102.0); Mean Platelet Volume 8.9 fl (9.2-11.8); Monocytes Absolute Auto 0.56 K/mm3 (0.10-0.90); Monocytes Percent Auto 10.3 % (2.0-11.0); Neutrophils Absolute Auto 2.5 K/mm3 (1.7-7.2); Neutrophils Percent Auto 45.6 % (50.0-70.0); Platelet Count Result 257 K/mm3 (150-420); Red Blood Count 3.57 M/mm3 (4.20-5.40); Red Cell Distribution Width 12.5 % (11.6-14.4); White Blood Count 5.4 K/mm3 (4.8-10.8)
[2022-12-26 21:17] LABS: Alanine Aminotransferase 25 U/L (14-59); Albumin Level 3.4 g/dL (3.4-5.0); Alkaline Phosphatase 65 U/L (46-116); Amylase 17 U/L (25-115); Anion Gap 9 mmol/L (8-16); Aspartate Amino Transferase 15 U/L (15-37); Bilirubin,Total 0.2 mg/dL (0.00-1.00); Blood Urea Nitrogen 14 mg/dL (7-18); Calcium 9.1 mg/dL (8.5-10.1); Carbon Dioxide 30 mmol/L (21-32); Chloride 104 mmol/L (98-108); Estimated CRCL calculation 76 ml/min; Estimated Glomerular Filt Rate > 60; Glucose 93 mg/dL (70-99); Lipase 49 U/L (16-77); Osmolality Calculated 296 mOsm/kg (285-295); Potassium 3.9 mmol/L (3.5-5.1); Sodium 143 mmol/L (136-145); Total Protein 6.3 g/dL (6.4-8.2)
--- NOTE | 2022-12-26 21:28 | PC.NURSE ---
IV site tried x2 unsucessful
--- NOTE | 2022-12-26 21:42 | PC.NURSE ---
RN spent >20 minutes at bedside, attempted IV start x 2 without success.
[2022-12-26] MEDS: traMADol HCL (*CRX) 50 MG TABLET 100 MG PO (21:55)
[2022-12-26] MEDS: CYCLOBENZAPRINE HCL 10 MG TABLET PO (21:55)
[2022-12-26 22:55] VITALS: BP 138/90; PULSE 78; RESP 20; TEMP 36.6; O2SAT 98
== END 2022-12-26 22:56 | disposition home or self-care (01) ==
PROVIDERS: Emergency Provider Emergency Medicine
DX: M54.50 Low back pain, unspecified (principal); Z85.3 Personal history of malignant neoplasm of breast
CPT/HCPCS: 36415; 74176; 80053; 81003; 82150; 83690; 85025; 99284; A9270

== ENCOUNTER 2024-03-02 13:02 | Emergency (ER) | payer OTHER, SELFPAY ==
[2024-03-02 14:47] VITALS: BP 114/88; PULSE 93; RESP 16; TEMP 36.4; O2SAT 99
--- NOTE | 2024-03-02 15:41 | ED.NAVMDI ---
HPI - Nausea/Vomiting/Diarrhea General Chief complaint: Nausea/Vomiting/Diarrhea Stated complaint: diarrhea for 8 days Time Seen by Provider: 03/02/24 15:29 Source: patient and RN notes reviewed Mode of arrival: ambulatory Limitations: no limitations History of Present Illness HPI Narrative: Patient presents today complaining of an 8 day history of diarrhea that has been worsening since onset. She reports that now she is having at least 10 episodes per day. Believes that she may not be staying hydrated enough. Associated symptoms including abdominal cramps. Denies blood or mucus in the stool, fever. She tried some Imodium 3 days ago and some Pepto-Bismol without relief. No new medications or suspicious food intake. No one else in her home has similar symptoms. Related Data Home Medications ?Medication ?Instructions ?Recorded ?Confirmed ?Last Taken ?Type ergocalciferol (vitamin D2) 1,250 1 unit PO WEEKLY 03/21/22 03/02/24 Unknown History mcg (50,000 unit) capsule escitalopram oxalate 20 mg tablet 20 mg PO DAILY 03/21/22 03/02/24 Unknown History tirzepatide 15 mg/0.5 mL 15 mg subcut WEEKLY 03/21/22 03/02/24 Unknown History subcutaneous pen injector (Mounjaro) tirzepatide (weight loss) 15 mg subcut 03/02/24 Unknown History mg/0.5 mL subcutaneous pen injector (Zepbound) Allergies Allergy/AdvReac Type Severity Reaction Status Date / Time aspirin Allergy Intermediate Swelling Verified 12/29/22 12:15 Review of Systems Review of Systems: CONSTITUTIONAL: Denies body aches, fever, chills, or sweats. EYES: Denies visual changes, redness, or discharge. ENT: Denies rhinorrhea, congestion, sore throat, or otalgia. CARDIOVASCULAR: Denies chest pain, palpitations, or edema. RESPIRATORY: Denies cough or dyspnea. GASTROINTESTINAL: + diarrhea, abdominal cramping GENITOURINARY: Denies dysuria or hematuria. SKIN: Denies rash, itching, or wounds. MUSCULOSKELETAL: Denies back pain, joint pain, or myalgia. NEUROLOGIC: Denies headache, numbness, tingling, or weakness. PSYCH: Denies depression or anxiety. [facility] Past Medical History Medical History Breast cancer Surgical History Surgical History History of hysterectomy History of breast implant History of mastectomy Family History Family History Mother Family history non-contributory Social History Social History Smoking status: Never smoker Alcohol intake: current Alcohol use details: rarely Substance use: never Living arrangements: with family Gender identity (if verbalized by the patient): Female Sexual Orientation (if Verbalized by the Patient): Straight or Heterosexual Spiritual care concerns: No Comments At time of signature, I have reviewed and agree with nursing past medical, surgical, social and family history unless otherwise noted. Please see nursing chart for further information. There is no relevant family history pertinent to the presenting complaint Exam Narrative: GENERAL: Well-appearing, well-nourished, and in no acute distress. HEAD: Normocephalic, atraumatic. EYES: EOMI. No redness or drainage. Conjunctivae normal. ENT: Mucous membranes pink and moist. NECK: Normal AROM. CHEST: No respiratory distress. Clear to auscultation. HEART: Regular rate and rhythm. No murmur appreciated. Normal peripheral pulses. ABDOMEN: Soft, nontender, nondistended, normal active bowel sounds. EXTREMITIES: Normal range of motion. No edema. SKIN: Warm, dry, no rash. Capillary refill normal. Normal skin turgor. NEURO: No focal deficits. Alert and oriented x3. Gait steady. PSYCH: Normal affect. No signs of depression or anxiety. Course Course Level of Care: Express Care Visit Vital Signs Vital signs: Vital Signs Temperature 97.6 F 03/02/24 14:47 Pulse Rate 93 03/02/24 14:47 Respiratory Rate 16 03/02/24 14:47 Blood Pressure 114/88 03/02/24 14:47 Pulse Oximetry 99 03/02/24 14:47 Temperature 97.6 F 03/02/24 14:47 Pulse Rate 93 03/02/24 14:47 Respiratory Rate 16 03/02/24 14:47 Blood Pressure 114/88 03/02/24 14:47 Pulse Oximetry 99 03/02/24 14:47 Reviewed MDM - Nausea/Vomiting/Diarrhea MDM Narrative Medical decision making narrative: Prescription for Lomotil sent to pharmacy if patient decides she would like to take it. Recommend follow-up with PCP for possible stool testing. Anticipatory guidance given. ED precautions given. Differential Diagnosis Differential diagnosis: Likely food poisoning, gastroenteritis, clostridium difficile infection and dehydration Critical Care Time Critical Care Time Critical Care Time: No Discharge Plan Discharge Clinical Impression: Diarrhea Qualifiers: Diarrhea type: unspecified type Qualified Code(s): R19.7 - Diarrhea, unspecified Patient Disposition: Home, Self-Care Condition: Stable Instructions: Acute Diarrhea (ED) Additional Instructions: The cause of your diarrhea is unclear. Please take the Lomotil as prescribed. Make sure your staying hydrated with electrolyte fluids. Follow-up with your PCP as soon as possible for further evaluation and treatment. As discussed, if symptoms worsen to include severe abdominal pain, fever, vomiting, blood or mucus in your stool, feelings of dehydration, please go to the ER for further evaluation and treatment. Your blood pressure was elevated above 120/80 today at Urgent Care. This puts you above the threshold for follow up. Please schedule a followup visit with your personal physician as soon as possible, for further evaluation and treatment. Even blood pressure exceeding 120/80 may indicate pre-hypertension. Patient Language: Telugu Prescriptions: New diphenoxylate-atropine [Lomotil] 2.5-0.025 mg tablet 1 tablet PO TID PRN (Reason: diarrhea) Qty: 15 0RF No Action cyclobenzaprine 10 mg tablet 10 mg PO TID PRN (Reason: muscle spasm) Qty: 20 0RF escitalopram oxalate 20 mg tablet 20 mg PO DAILY Mounjaro 15 mg/0.5 mL pen injector 15 mg SUBCUT WEEKLY ergocalciferol (vitamin D2) 1,250 mcg (50,000 unit) capsule 1 unit PO WEEKLY Zepbound 15 mg/0.5 mL pen injector SUBCUT Follow-up/Referrals: PHYSICIAN NOT ON STAFF,NONSTAFF [Primary Care Provider] - Time of Disposition: 15:47
== END 2024-03-02 15:58 | disposition home or self-care (01) ==
PROVIDERS: Emergency Provider Nurse Practitioner
DX: R19.7 Diarrhea, unspecified (principal); Z85.3 Personal history of malignant neoplasm of breast; Z90.10 Acquired absence of unspecified breast and nipple
CPT/HCPCS: 99213; G0463

== ENCOUNTER 2024-08-20 17:21 | Emergency (ER) | payer OTHER, SELFPAY ==
--- NOTE | ~2024-08-20 | US_ITS ---
EXAMINATION: US venous doppler [facility] DATE: 08/20/2024 18:10 INDICATION: Pain and swelling TECHNIQUE: Grayscale ultrasound images without and with compression and Doppler ultrasound images of the left lower extremity veins were obtained. COMPARISON: None. FINDINGS: The visualized portions of left common femoral vein, profunda (deep) femoral vein, femoral vein, popl iteal vein, peroneal veins, posterior tibial veins, and greater saphenous vein outflow are patent. IMPRESSION: 1. No deep venous thrombosis. Reviewed, dictated and finalized at location A.
[2024-08-20 17:24] VITALS: BP 150/92; PULSE 97; RESP 16; TEMP 36.4; O2SAT 100
--- OUTSIDE RECORDS SUMMARY | 2024-08-20 17:24 | XMS_ITS ---
Author Organization [facility] Address [address] [place] [address] Care Team Providers Care Operations Engineer Name Role Phone Seth Powell MD Unavailable Jessica Rodriguez MD PhD Unavailable Lo White MD Primary Care Provider Fior Grimes MD Unavailable Yazan Calderon MD Unavailable [phone] Active Problems Problem Noted Date Diagnosed Date Palpitations 03/27/2024 Obesity, Class II, BMI 35-39.9 03/20/2024 Dietary counseling 01/22/2024 High risk for colon cancer 01/22/2024 Adult BMI 38.0-38.9 kg/sq m 11/29/2023 Hematoma 03/07/2023 History of breast reconstruction 01/12/2023 Chronic neck and back pain 10/13/2022 Cluster headache 10/13/2022 Depression with anxiety 10/13/2022 Metabolic disorder 10/13/2022 Fatigue 10/13/2022 Nonalcoholic hepatosteatosis 10/13/2022 HTN (hypertension) 10/13/2022 Migraine headache 10/13/2022 Prediabetes 10/13/2022 Sleep apnea 10/13/2022 Stage II breast cancer 10/13/2022 Stress 10/13/2022 Vitamin D deficiency 10/13/2022 Weight gain due to medication 10/13/2022 Encounter for follow-up exam ination after completed treatment for malignant neoplasm 08/04/2021 History of breast cancer 08/04/2021 Personal history of irradiation 08/04/2021 Anxiety 07/01/2021 Class 1 obesity 07/01/2021 Acquired absence of breast and absent nipple, bi lateral 07/01/2021 S/P breast reconstruction, bilateral 04/19/2021 Overview (04/19/2021): Added automatically from request for surgery [id number] Encounter for weight management 10/12/2020 Malignant neoplasm of upper- outer quadrant of right breast in female, estrogen receptor negative 10/05/2020 Cancer Staging:Clinical:Stage IIB(cT2, cN1, cM0, G3, ER-, AK-, HER2+) - Signed by Jessica Rodriguez MD PhD on 04/27/2021 Pathologic: ypT0, ypN0, cM0 - Unsigned Current Treatment and Therapy Plans No current plan information found. Past Treatment and Therapy Plans Oncology Chemotherapy Treatment Plan Name Start Date Discontinue Date Treatment Medications Discontinue Reason Plan Provider Cycles TCHP: (DOCEtaxel / CARBOplatin / Trastuzumab / Pertuzumab) 21 Day Cycles - Breast 01/25/2022 CARBOplatin (PARAPLATIN)CARBO platin (PARAPLATIN) IVPB in 250 mLDOCEtaxel (TAXOTERE)DOCEtax el (TAXOTERE) IVPB in 250 mL (vial 20mg/mL)pertuzuma b (PERJETA)pertuzum ab (PERJETA) IVPBtrastuzumab (HERCEPTIN)trastu zumab (HERCEPTIN) IVPB Therapy Complete Seth Powell MD 17 of 17 cycles started Specialty Infusion Treatment Plan Name Start Date Discontinue Date Treatment Medications Discontinue Reason Plan Provider IV Maintenance Therapy Plan 10/30/2020 01/25/2022 No medications scheduled. Therapy Complete Jessica Rodriguez MD PhD Radiation Treatments * Course [id number]/25/2021 - 06/15/2021 Treatment Period Energy Fraction Dose Fractions Total Dose Plans Planned RT CW_LN 05/25/2021 - 06/15/2021 266 16 / 4,256 Reference Points Delivered PTV R CW [id number] 05/25/2021 - 06/15/2021 4,256 Lifetime Dose Tracking * Chemical Lifetime Dose Automatic Entry Manual Entr y Fluoro Time 0.2 minutes 0.2 minutes 0 minutes Air kerma at the reference point (Ka,r) 1 mGy 1 mGy 0 mGy DLP 3,517 mGycm 3,517 mGycm 0 mGycm
--- OUTSIDE RECORDS SUMMARY | 2024-08-20 17:24 | XMS_ITS | Encounter Summary ---
Author Organization [facility] Address [address] [place] [address] Phone Care Team Providers Care Vest Finisher Name Role Phone Seth Powell MD Unavailable Jessica Rodriguez MD PhD Unavailable [phone] Lo White MD Primary Care Provider Fior Grimes MD Unavailable [phone] Yazan Calderon MD Unavailable [phone] Encounter Details Date Type Department Care Team (Latest Contact Info) Description 08/20/2022 Orders Only [facility] Scanning, Provider Social History Tobacco Use Types Packs/Day Years Used Date Smoking Tobacco: Former Cigarettes 2013 Smokeless Tobacco: Never AUDIT-C Answer Date Recorded Q1: How often do you have a drink containing alc ohol? Monthly or less 02/24/2022 Q2: How many drinks containi ng alcohol do you have on a typical day when you are drinking? 1 or 2 02/24/2022 Q3: How often do you have si x or more drinks on one occasion? Never 02/24/2022 PHQ-2 Answer Date Recorded PHQ-2 Total Score (If total score is 3 or more points, staff should administer the PHQ-9) 0 09/16/2021 Comments No Sex and Gender Information Value Date Recorded Sex Assigned at Not on file Legal Sex Female 11:55 PM RECORDIST Gender Identity Not on file Sexual Orientation Straight 10/05/2020 7: 57 PM CDT documented as of this encounter Plan of Treatment Not on file documented as of this encounter Procedures Procedure Name Priority Date/Time Associated Diagnosis Comments SCAN - PATHOLOGY 08/20/2022 documented in this encounter Results * SCAN - PATHOLOGY (08/20/2022) us Provider Scanning Final Result documented in this encounter Visit Diagnoses Not on filedocumented in this encounter Care Teams Vest Finisher Relationship Specialty Start Date End Date Lo White MD [address] [place] [address] PCP - General Internal Medicine 09/16/21 Seth Powell MD [address] [place] [address] Consulting Physician Medical Oncology 10/07/20 Jessica Rodriguez MD PhD [address] [place] [address] Radiation Oncologist Radiation Oncology 04/27/21 Fior Grimes MD [address] [facility] [address] [address] Surgeon Surgical Oncology 01/19/22 Yazan Calderon MD [address], [facility] [address] [place] [address] Consulting Physician Internal Medicine 01/22/24 documented as of this encounter
--- OUTSIDE RECORDS SUMMARY | 2024-08-20 17:24 | XMS_ITS | Referral Summary ---
Author Organization [facility] Address [address] [place] [address] Care Team Providers Care Frontload Driver Name Role Phone Seth Powell MD Unavailable Jessica Rodriguez MD PhD Unavailable [phone] Lo White MD Primary Care Provider Fior Grimes MD Unavailable Yazan Calderon MD Unavailable [phone] Encounters Date Type Department Care Team Description 05/24/2024 Telephone [facility] Surgery [address] [facility] [address] [place] [address] Ang Slater MD from Last 3 Months Allergies Active Allergy Reactions Criticality Noted Date Comments Aspirin Anaphylaxis High 10/06/2020 Other reaction(s): Swelling of throat (Is still able to take Ibuprofen) Docetaxel Other (See comments),Flushing (skin) Low 10/23/2020 Approx. 30 minutes into infusion, patient became flushed. tremors - flushing of skin - tremors Medications butalbital-acet aminophen-caffe ine (ESGIC) 50-325-40 mg per tabletIndicatio ns:Migraine Take 1 tablet by mouth every 4 (four) hours as needed for headaches or migraine 01/05/20 17 Active testosterone micronized, bulk, 100 % powderIndicatio ns:Hormone replacement Take by mouth every morning 5 10/23/19 24 Active dextroamphetami ne-amphetamine XR (ADDERALL XR) 20 mg 24 hr capsule Take 1 capsule (20 mg total) by mouth every morning 30 capsule 03/20/19 25 Active escitalopram (LEXAPRO) 20 mg tabletIndicatio ns:Hot flashes TAKE 1 TABLET BY MOUTH EVERY DAY 90 tablet 06/11/19 25 Active zonisamide (ZONEGRAN) 25 mg capsule TAKE 1 CAPSULE BY MOUTH TWICE A DAY 180 capsule 1 06/19/19 25 Active ergocalciferol (VITAMIN D) 50,000 unit capsule TAKE 1 CAPSULE BY MOUTH ONE TIME PER WEEK 4 capsule 3 07/23/19 25 Active tirzepatide, weight loss, (Zepbound) 12.5 mg/0.5 mL pen injectorIndicat ions:Adult BMI 38.0-38.9 kg/sq m,Obesity, Class II, BMI 35-39.9 Inject 0.5 mL (12.5 mg total) under the skin every 7 days 2 mL 2 08/06/19 25 Active ergocalciferol (VITAMIN D) 50,000 unit capsule TAKE 1 CAPSULE BY MOUTH ONE TIME PER WEEK 4 capsule 3 03/19/19 25 025 Discontinued tirzepatide, weight loss, (Zepbound) 12.5 mg/0.5 mL pen injectorIndicat ions:Adult BMI 38.0-38.9 kg/sq m,Obesity, Class II, BMI 35-39.9 Inject 0.5 mL (12.5 mg total) under the skin every 7 days 2 mL 2 06/18/19 25 025 Discontinued(Re order) Active Problems Problem Noted Date Diagnosed Date [...] (04/19/2021): Added automatically from request for surgery [id number] Encounter for weight management 10/12/2020 Malignant neoplasm of upper- outer quadrant of right breast in female, estrogen receptor negative 10/05/2020 Cancer Staging:Clinical:Stage IIB(cT2, cN1, cM0, G3, ER-, KS-, HER2+) - Signed by Jessica Rodriguez MD PhD on 04/27/2021 Pathologic: ypT0, ypN0, cM0 - Unsigned Immunizations Immunization Administration Dates Next Due Influenza, Quadrivalent, Muriel l Culture-based MDCK, Preservative Free, Antibiotic Free, Intramuscular 12/27/2022,01/11/2022,12/25/2020 Influenza, Trivalent, IM (MDV) 11/18/2016 Influenza, Trivalent, Preser vative Free, Intramuscular 12/09/2013 Pfizer SARS-CoV-2 Monovalent Vaccination (12+ Yrs) PURPLE 11/10/2020,11/10/2020,10/19/2020,10/19 Tdap 03/10/2014 Social History Tobacco Use Types Packs/Day Years Used Date Smoking Tobacco: Former Cigarettes 1 20 1 - 2013 Passive Smoke Exposure: Never Smokeless Tobacco: Never Tobacco Cessation:Counseling Given: Not Answered AUDIT-C Answer Date Recorded Q1: How often do you have a drink containing alc ohol? Monthly or less 03/20/2024 Q2: How many drinks containi ng alcohol do you have on a typical day when you are drinking? 1 or 2 03/20/2024 Q3: How often do you have si x or more drinks on one occasion? Never 03/20/2024 PHQ-2 Answer Date Recorded PHQ-2 Total Score (If total score is 3 or more points, staff should administer the PHQ-9) 0 09/16/2021 Personal Safety Answer Date Recorded Have you ever been in or are you currently in a harmful physical or emotional relationship or is someone making you feel afraid or unsafe? Denies 02/15/2024 Comments No Sex and Gender Information Value Date Recorded Sex Assigned at Not on file Legal Sex Female 11:55 PM OUTSIDE UPHOLSTERER Gender Identity Not on file Sexual Orientation Straight 10/05/2020 7: 57 PM CDT Last Filed Vital Signs Vital Sign Reading Time Taken Comments Blood Pressure 106/75 04/17/2024 11:08 AM OUTSIDE UPHOLSTERER Pulse 110 04/17/2024 11:08 AM OUTSIDE UPHOLSTERER Temperature 36.3 C (97.4 F) 04/17/2024 11:08 AM OUTSIDE UPHOLSTERER Respiratory Rate 18 04/17/2024 11:08 AM OUTSIDE UPHOLSTERER Oxygen Saturation 97% 04/17/2024 11:08 AM OUTSIDE UPHOLSTERER Inhaled Oxygen Concentration - - Weight 92 kg (202 lb 12.8 oz) 04/17/2024 11:08 A M OUTSIDE UPHOLSTERER Height 175.3 cm (5' 9) 03/27/2024 12:34 PM OUTSIDE UPHOLSTERER Body Mass Index 29.95 03/27/2024 12:34 PM OUTSIDE UPHOLSTERER Plan of Treatment Not on file Medical Devices Implanted Type Area Fast Food Server Device Identifier Shelf Expiration Date Model / Serial / Lot Life Cell Shana [id number] Alloderm Select [id number] Allograft Regenerative Thk.4-2.4mm Thick - Sn/A - [id number] Implanted:Qty: 1 on 03/31/2021 by Ang Slater MD at [facility] Breast Right: Breast [employer] 04/05/2022 [id number] / N/A / [id number] Life Cell Shana [id number] Alloderm Select [id number] Allograft Regenerative Thk.4-2.4mm Thick - Sn/A - [id number] Implanted:Qty: 1 on 03/31/2021 by Ang Slater MD at [facility] Breast Left: Breast [employer] 04/05/2022 [id number] / N/A / [id number] [employer] Allian [address] [place] 2.5mm Ring Pin Ultrasonic Doppler 20mhz Steel Burner Anastomosis Latex Free - [id number] Implanted:Qty: 1 on 07/01/2021 by Ang Slater MD at [facility] Left: Breast [employer] Allian [id number] 11/24/2025 [id number] / / [id number] [employer] Allian [address] [place] 2mm Ring Pin Ultrasonic Doppler 20mhz Steel Burner Anastomosis Latex Free - [id number] Implanted:Qty: 1 on 07/01/2021 by Ang Slater MD at [facility] Left: Breast [place] [employer] Allian [id number] 12/07/2025 2752 / / [id number] [facility] Allian [address] [place] 2.5mm Ring Pin Ultrasonic Doppler 20mhz Steel Burner Anastomosis Latex Free - [id number] Implanted:Qty: 1 on 07/01/2021 by Ang Slater MD at [facility] Right: Breast [place] [employer] Allian [id number] 11/24/2025 2753 / / [id number] [employer] Ultrapro 6x6in Partial Absorbable Lightweight Flat Mesh Surgical Umm3 - [id number] Implanted:Qty: 1 on 07/01/2021 by Ang Slater MD at [facility] N/A: Abdomen [employer] [id number] 02/02/2026 UMM3 / / [id number] Explanted Type Area Fast Food Server Device Identifier Shelf Expiration Date Model / Serial / Lot [employer] Ssm-600 Natrelle Inspira Smooth Shell Surface Moderate Profile Implant 600 Cc Breast Soft Touch Sterile Latex Free - [id number] - [id number] Implanted:Qty: 1 on 03/31/2021 by Ang Slater MD at [facility] Explanted:Qty: 1 on 07/01/2021 by Ang Slater MD at [facility] Breast Right: Breast [employer] 06/01/2025 SSM-600 / [id number] / [employer] Ssm-600 Alecia Walker Smooth Shell Surface Moderate Profile Implant 600 Cc Breast Soft Touch Sterile Latex Free - [id number] - [id number] Implanted:Qty: 1 on 03/31/2021 by Ang Slater MD at [facility] Explanted:Qty: 1 on 07/01/2021 by Ang Slater MD at [facility] Breast Left: Breast [employer] 04/08/2024 SSM-600 / [id number] / [employer] [id number] Powerport Airguard 8fr 1 Lumen Attachable Catheter Intermediate Latex Free - [id number] Implanted:Qty: 1 on 10/14/2020 by Fior Grimes MD at [facility] Explanted:Qty: 1 on 11/15/2021 by Fior Grimes MD at [facility] Left: Chest [employer] 06/03/2022 [id number] / / [id number] Procedures Procedure Name Priority Date/Time Associated Diagnosis Comments COLONOSCOPY 01/31/2024 1:36 PM OUTSIDE UPHOLSTERER DIAGNOSTIC MAMMOGRAM BILATERAL W CHUCHO Schedule Routine, Read Routine (OP Routine) 09/18/2020 12:18 PM CDT Unspecified lump in the right breast, upper outer quadrant from Last 3 Months or Most Recently Relevant to Health Maintenance Results * Colonoscopy (01/31/2024 1:36 PM OUTSIDE UPHOLSTERER) Anatomical Region Laterality Modality Other Narrative Procedure Note Esa Bardales MD - 01/31/2024 1:36 PM [facility] Patient Name: Jeaneth Mead Procedure Date: 01/31/2024 1:36 PM Date of : 1980 Admit Type: Outpatient Age: 43 Gender: Female Attending MD: Esa Bardales M.D. Room: [facility] ENDOSCOPY ROOM 9 Note Status: Finalized Procedure: Colonoscopy Indications: Screening for colorectal malignant neoplasm Referring MD: PARISH Rowley Providers: Esa Bardales M.D. Comorbidities See the other procedure note for documentation of comorbidities Medicines: Monitored Anesthesia Care Complications: No immediate complications. Estimated Blood Loss: Estimated blood loss was minimal. Procedure: Pre-Anesthesia Assessment: - Prior to the procedure, a History and Physicalwas performed, and patient medications, allergies and sensitivities were reviewed. The patient'stolerance of previous anesthesia was reviewed. - Immediately prior to administration ofmedications, the patient was re-assessed for adequacy to receive sedatives. - The risks and benefits of the procedure and the sedation options and risks were discussed with the patient. All questions were answered and informed consent was obtained. The benefits, risks and alternatives of theprocedure and sedation were discussed and informed consentwas obtained. All questions were answered. Please referto the signed informed consent document in the medical record. The scope was passed under direct vision.The [id number] endoscope was introduced through the anus and advanced to the terminal ileum. The colonoscopy was performed without difficulty. The patient tolerated the procedure well. The qualityof the bowel preparation was evaluated using the BBPS ([place] Bowel Preparation Scale) with scores of:Right Colon = 3, Transverse Colon = 3 and Left Colon = 3 (entire mucosa seen well with no residual staining, small fragments of stool or opaque liquid). Thetotal BBPS score equals 9. The bowel preparation used was GoLYTELY via split dose instruction. The quality of the bowel preparation was adequate. Findings: The perianal and digital rectal examinations were normal. The terminal ileum appeared normal. Multiple small and large-mouthed diverticula were found in thesigmoid colon, descending colon and transverse colon. An 8 mm polyp was found in the rectum. The polyp was sessile. Thepolyp was removed with a cold snare. Resection and retrieval werecomplete. Non-bleeding internal hemorrhoids were found during retroflexion. The exam was otherwise without abnormality on direct and retroflexion views. Impression: - The examined portion of the ileum was normal. - Diverticulosis in the sigmoid colon, in the descending colon and in the transverse colon. - One 8 mm polyp in the rectum, removed with a cold snare. Resected and retrieved. - Non-bleeding internal hemorrhoids. - The examination was otherwise normal on directand retroflexion views. Recommendation: - The patient will be observed post-procedure,until all discharge criteria are met. - Surveillance colonoscopy in 5 years pending pathology results. - Continue home medications. - Resume previous diet. - Follow up with referring physician as previously scheduled. - In the unusual situation that you developabdominal, bleeding or other significant problems in the days following this procedure please call [phone] ask for my nurse, Hannah Hancock. After hours and evenings please call [phone] and speak to theGI fellow rn long term care. Please tell the fellow that Dr. Bardales did your procedure and that you were instructed to have the fellow call me or thephysician covering for me to discuss the management of your condition. If you have an urgent problem, please goto the nearest emergency room and have the ER doctorcall my office during the day or the GI fellow afterhours and weekends to arrange admission or transfer toour facility. Please bring this report with you if yougo to the emergency room. Attending Participation: I personally performed the entire procedure. Electronically signed by Esa Bardales MD Esa Bardales M.D. 01/31/2024 2:02:00 PM . Number of Addenda: 0 Note Initiated On: 01/31/2024 1:36 PM us Esa Bardales MD ENDOSCOPY PROCEDURES Final Result * (ABNORMAL) Diagnostic Mammogram Bilateral W Chucho (09/18/2020 12:18 PM CDT) Anatomical Region Laterality Modality Breast Bilateral Mammography 09/18/2020 1:07 PM CDT Impressions 09/18/2020 1:07 PM CDT BI-RADS Category 5: Highly suggestive of malignancy. Ultrasound-guided core needle biopsy recommended for right breast mass 10 o'clock position 5 cm from the nipple. Ultrasound-guided core needle biopsy recommended for abnormally enlarged right axillary lymph node. Results and recommendations discussed with the patient. Electronically signed by: Eliseo Cherry M.D. Narrative 09/18/2020 1:07 PM CDT Bilateral diagnostic mammogram with CAD and tomosynthesis and limited right breast sonogram HISTORY: Right breast lump. Present for 2 weeks. FINDINGS: No prior studies for correlation. Bilateral diagnostic mammogram performed along with CAD and tomosynthesis. Limited right breast sonogram performed. The breasts are heterogeneously dense, which may obscure small masses. There are no suspicious microcalcifications appreciated. The mammogram images show a hyperdense mass in the upper outer right breast. No definite masses appreciated on the left. Limited right breast sonogram was performed. The patient's area of palpable concern in the right breast at 10:00, 5 cm from the nipple was imaged. There is an irregular, hypoechoic mass with increased vascularity. This mass is taller than wide and measures approximately 30 x 33 x 18 mm. The margins are irregular. The right axilla was imaged showing an abnormally enlarged lymph node with abnormally thickened cortex of 7 mm. us Fredrick Fung MD IMG MAMMO PROCEDURES Julia l Result from Last 3 Months or Most Recently Relevant to Health Maintenance Insurance [facility] [id number] [facility] [id number] GENERIC COPAY ASSIST [employer] [facility] [id number] Advance Directives For more information, please contact: [phone] * Full Code (Latest Code Status on File) Date Activated Date Inactivated Comments 01/31/2024 12:47 PM 01/31/2024 7:10 PM * Full Code Date Activated Date Inactivated Comments 02/15/2023 1:30 PM 02/16/2023 3:11 PM * Full Code Date Activated Date Inactivated Comments 07/01/2021 8:27 PM 07/05/2021 3:58 PM Care Teams Frontload Driver Relationship Specialty Start Date End Date Lo White MD [address] [facility] [address] [place] [address] PCP - General Internal Medicine 09/16/21 Seth Powell MD [address] [place] [address] Consulting Physician Medical Oncology 10/07/20 Jessica Rodriguez MD PhD [address] [facility] [address] [place] [address] Radiation Oncologist Radiation Oncology 04/27/21 Fior Grimes MD [address] [address] Surgeon Surgical Oncology 01/19/22 Yazan Calderon MD [address] IM ENDOCRINOLOGY, [address] [address] Consulting Physician Internal Medicine 01/22/24
--- OUTSIDE RECORDS SUMMARY | 2024-08-20 17:24 | XMS_ITS | Encounter Summary ---
Author Organization [facility] Address [address] [place] [address] Care Team Providers Care Slot Machine Floor Person Name Role Phone No, Physician Primary Care Provider [phone] Seth Powell MD Unavailable Remigio Xavier MD Primary Care Provider [phone] Jessica Rodriguez MD PhD Unavailable [phone] No, Physician Primary Care Provider [phone] Lo White MD Primary Care Provider Fior Grimes MD Unavailable [phone] Yazan Calderon MD Unavailable [phone] Encounter Details Date Type Department Care Team (Late st Contact Info) Description 10/02/[address] [address] Hollie Arevalo, YOHANA Social History Tobacco Use Types Packs/Day Years Used Date Smoking Tobacco: Never Assessed AUDIT-C Answer Date Recorded Q1: How often do you have a drink containing alc ohol? Monthly or less 10/06/2020 Average Number of Drinks Not on file 021 Frequency of Binge Drinking Not on file 05/2020 Comments Unknown Sex and Gender Information Value Date Recorded Sex Assigned at Not on file Legal Sex Female 11:55 PM WALLPAPER INSTALLER Gender Identity Not on file Sexual Orientation Straight 10/05/2020 7: 57 PM CDT documented as of this encounter Plan of Treatment Not on file documented as of this encounter Visit Diagnoses Not on filedocumented in this encounter Additional Health Concerns Infection Onset Date Last Indicated Resolved Time COVID: Suspected 03/22/2022 03/22/2022 03/23/2022 3:06 AM WALLPAPER INSTALLER documented as of this encounter Care Teams Slot Machine Floor Person Relationship Specialty Start Date End Date No, Physician PCP - General 09/22/20 10/28/20 Remigio Xavier MD [address] [place] [address] PCP - General 10/29/20 08/16/21 No, Physician PCP - General 08/23/21 09/15/21 Lo White MD [address] [place] [address] PCP - General Internal Medicine 09/16/21 Seth Powell MD [address] [place] [address] Consulting Physician Medical Oncology 10/07/20 Jessica Rodriguez MD PhD [address] [place] [address] Radiation Oncologist Radiation Oncology 04/27/21 Fior Grimes MD [address] [facility] [address] [place] [address] Surgeon Surgical Oncology 01/19/22 Yazan Calderon MD [address] DIV IM ENDOCRINOLOGY, [facility] [address] [place] [address] Consulting Physician Internal Medicine 01/22/24 documented as of this encounter
--- OUTSIDE RECORDS SUMMARY | 2024-08-20 17:24 | XMS_ITS | Encounter Summary ---
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 Gender Identity Not on file Sexual Orientation Straight 10/05/2020 7: 57 PM CDT documented as of this encounter Plan of Treatment Not on file documented as of this encounter Procedures Procedure Name Priority Date/Time Associated Diagnosis Comments SCAN - PATHOLOGY 09/01/2022 2:52 PM CDT documented in this encounter Results * SCAN - PATHOLOGY (09/01/2022 2:52 PM CDT) us Provider Scanning Final Result documented in this encounter Visit Diagnoses Not on filedocumented in this encounter Care Teams Vamp Cut Out Worker Relationship Specialty Start Date End Date Lo White MD [address] [place] [address] PCP - General Internal Medicine 09/16/21 Seth Powell MD [address] [place] [address] Consulting Physician Medical Oncology 10/07/20 Jessica Rodriguez MD PhD [address] [place] [address] Radiation Oncologist Radiation Oncology 04/27/21 Fior Grimes MD [address] [address] Surgeon Surgical Oncology 01/19/22 Yazan Calderon MD [address] DIV IM ENDOCRINOLOGY, [facility] [address] [place] [address] Consulting Physician Internal Medicine 01/22/24 documented as of this encounter
--- OUTSIDE RECORDS SUMMARY | 2024-08-20 17:24 | XMS_ITS | Clinical Summary ---
Author Organization [facility] Address [address] [place] [address] Care Team Providers Care Atomic Physics Professor Name Role Phone Seth Powell MD Unavailable Jessica Rodriguez MD PhD Unavailable [phone] Lo White MD Primary Care Provider Fior Grimes MD Unavailable [phone] Yazan Calderon MD Unavailable [phone] Allergies Active Allergy Reactions Criticality Noted Date [...] (04/19/2021): Added automatically from request for surgery [id number] Encounter for weight management 10/12/2020 Malignant neoplasm of upper- outer quadrant of right breast in female, estrogen receptor negative 10/05/2020 Cancer Staging:Clinical:Stage IIB(cT2, cN1, cM0, G3, ER-, AR-, HER2+) - Signed by Jessica Rodriguez MD PhD on 04/27/2021 Pathologic: ypT0, ypN0, cM0 - Unsigned Encounters Date Type Department Care Team Description 05/24/2024 Telephone [facility] Surgery [address] [place] [address] [address] [place] [address] Ang Slater MD from Last 3 Months Immunizations Immunization Administration Dates Next Due Influenza, Quadrivalent, Muriel l Culture-based MDCK, Preservative Free, Antibiotic Free, Intramuscular 12/27/2022,01/11/2022,12/25/2020 Influenza, Trivalent, IM (MDV) 11/18/2016 Influenza, Trivalent, Preser vative Free, Intramuscular 12/09/2013 Pfizer SARS-CoV-2 Monovalent Vaccination (12+ Yrs) PURPLE 11/10/2020,11/10/2020,10/19/2020,10/19 Tdap 03/10/2014 Surgical History Surgery Date Site/Laterality Comments ORAL SURGERY COLONOSCOPY ESOPHAGOGASTRODUODENOSCOPY 03/14/2017 PORTACATH PLACEMENT 10/14/2020 BREAST BIOPSY 09/29/2020 Right IDC with axillary involvement BREAST BIOPSY 10/16/2020 Left BREAST RECONSTRUCTION 03/31/2021 breast implants silicone/ amber flap HYSTERECTOMY 07/01/2021 with BSO PORT REMOVAL 11/15/2021 BREAST RECONSTRUCTION 07/01/2021 Bilateral AMBER Flap MASTECTOMY 03/31/2021 Bilateral w/ SNLB BREAST RECONSTRUCTION 02/24/2022 EXCISION CYST/LESION/MASS - LEFT BREAST NECROSIS; REVISION SCAR - ABDOMINAL - DOG EAR ; MASTOPEXY Left ; REVISION BREAST - REVISION OF LEFT AXILLARY SKIN AND RIGHT FLAP SKIN PADDLE BREAST SURGERY 02/03/2023 - 03/05/2023 Left LEFT LATISSIMUS FLAP DILATION AND EVACUATION 03/10/2023 Left Hematoma Medical History Medical History Date Comments Generalized headaches Depression Breast cancer (HCC) Breast cancer (HCC) last chemoth era- 2021 PONV (postoperative nausea a nd vomiting) Did well with scopolamine pa tch History of breast cancer last ra diation 2021, next chemo 11/04/21 Hematoma 03/07/2023 Family History Medical History Relation Name Comments Hodgkin's lymphoma Cousin Mat Cousin Tongue cancer Father's Sister Pancreatic cancer Maternal Grandmother Breast cancer Mother's Sister Kidney cancer Other 1 Pat Great Aunt Testicular cancer Other 2 Pat Great Uncle Lung cancer Other 3 Pat Great Aunt Pancreatic cancer Other 4 Pat Aunt No Known Problems Sister Anesthesia problems Neg Hx Malig Hyperthermia Neg Hx Pseudochol deficiency Neg Hx Relation Name Status Comments Cousin Mat Cousin Father Alive Father's Sister Maternal Grandmother Mother Alive Mother's Sister Other 1 Pat Great Aunt Other 2 Pat Great Uncle Other 3 Pat Great Aunt Other 4 Pat Aunt Sister Alive Social History Tobacco Use Types Packs/Day Years [...] on file Legal Sex Female 11:55 PM OPERATIONAL RISK MANAGER Gender Identity Not on file Sexual Orientation Straight 10/05/2020 7: 57 PM CDT Obstetrics History Para Term AB IAB SAB Ectopic Multiple Livin g Live Births 2 2 2 2 2 Date Outcome GA Total Labor Labor/2nd/3rd Weight Sex Type Anes PTL Lovely A1 A5 Name Clin Term Term Last Filed Vital Signs Vital Sign Reading Time Taken Comments Blood Pressure 106/75 04/17/2024 11:08 AM OPERATIONAL RISK MANAGER Pulse 110 04/17/2024 11:08 AM OPERATIONAL RISK MANAGER Temperature 36.3 C (97.4 F) 04/17/2024 11:08 AM OPERATIONAL RISK MANAGER Respiratory Rate 18 04/17/2024 11:08 AM OPERATIONAL RISK MANAGER Oxygen Saturation 97% 04/17/2024 11:08 AM OPERATIONAL RISK MANAGER Inhaled Oxygen Concentration - - Weight 92 kg (202 lb 12.8 oz) 04/17/2024 11:08 A M OPERATIONAL RISK MANAGER Height 175.3 cm (5' 9) 03/27/2024 12:34 PM OPERATIONAL RISK MANAGER Body Mass Index 29.95 03/27/2024 12:34 PM OPERATIONAL RISK MANAGER Plan of Treatment Health Maintenance Due Date Last Done Comments Hepatitis C Screening 1980 Hepatitis B Screening 1996 Regular Well Visit/Exam 18-64 1996 Pneumococcal vaccine <65 (1 of 2 - PCV) 1997 Breast Cancer Screening-Mammogram 09/18/2021 09/18/2020 Depression Screening 09/16/2022 09/16/2021 Covid-19 Vaccine ( season) 2023 03/03/2021, 11/10/2020, 11/10/2020, Additional history exists DTaP/Tdap/Td Vaccine (2 - Td or Tdap) 03/10/2024 03/10/2014 Influenza Vaccine (Season Ended) 2024 12/27/2022, 01/11/2022, 12/25/2020, Additional history exists Colon Cancer Screening-Colonoscopy 01/30/2029 01/31/2024 HPV Vaccines Aged Out No longer eligi ble based on patient's age to complete this topic Medical Devices Implanted Type Area Director It Project Device Identifier Shelf Expiration Date Model / Serial / Lot Life Cell Shana [id number] Alloderm Select [id number] Allograft Regenerative Thk.4-2.4mm Thick - Sn/A - [id number] Implanted:Qty: 1 on 03/31/2021 by Ang Slater MD at [facility] Breast Right: Breast [employer]ergan [employer] 04/05/2022 [id number] / N/A / [id number] Life Cell Shana [id number] Alloderm Select [id number] Allograft Regenerative Thk.4-2.4mm Thick - Sn/A - [id number] Implanted:Qty: 1 on 03/31/2021 by Ang Slater MD at [facility] Breast Left: Breast [employer] 04/05/2022 [id number] / N/A / [id number] Synovis PAIEON Allian 2753 [place] 2.5mm Ring Pin Ultrasonic Doppler 20mhz Manager Contact Anastomosis Latex Free - [id number] Implanted:Qty: 1 on 07/01/2021 by Ang Slater MD at [facility] Left: Breast Synovis Micro GT Solar Allian [id number] 11/24/2025 2753 / / [id number] Synovis PAIEON Allian 2752 [place] 2mm Ring Pin Ultrasonic Doppler 20mhz Manager Contact Anastomosis Latex Free - [id number] Implanted:Qty: 1 on 07/01/2021 by Ang Slater MD at [facility] Left: Breast Synovis Micro GT Solar Allian [id number] 12/07/2025 2752 / / [id number] Synovis PAIEON Allian 2753 [place] 2.5mm Ring Pin Ultrasonic Doppler 20mhz Manager Contact Anastomosis Latex Free - [id number] Implanted:Qty: 1 on 07/01/2021 by Ang Slater MD at [facility] Right: Breast Synovis Micro GT Solar Allian [id number] 11/24/2025 2753 / / [id number] [employer] Ultrapro 6x6in Partial Absorbable Lightweight Flat Mesh Surgical Umm3 - [id number] Implanted:Qty: 1 on 07/01/2021 by Ang Slater MD at [facility] N/A: Abdomen [employer] End[employer] Surgery [id number] 02/02/2026 UMM3 / / [id number] Explanted Type Area Director It Project Device Identifier Shelf Expiration Date Model / Serial / Lot Allergan Usa Inc Ssm-600 Natrelle Inspira Smooth Shell Surface Moderate Profile Implant 600 Cc Breast Soft Touch Sterile Latex Free - [id number] - [id number] Implanted:Qty: 1 on 03/31/2021 by Ang Slater MD at [facility] Explanted:Qty: 1 on 07/01/2021 by Ang Slater MD at [facility] Breast Right: Breast Aller[employer] 06/01/2025 SSM-600 / [id number] / Allergan [employer] Ssm-600 Natrelle Inspira Smooth Shell Surface Moderate Profile Implant 600 Cc Breast Soft Touch Sterile Latex Free - [id number] - [id number] Implanted:Qty: 1 on 03/31/2021 by Ang Slater MD at [facility] Explanted:Qty: 1 on 07/01/2021 by Ang Slater MD at [facility] Breast Left: Breast [employer] 04/08/2024 SSM-600 / [id number] / [employer] Access Systems [id number] Powerport Airguard 8fr 1 Lumen Attachable Catheter Intermediate Latex Free - [id number] Implanted:Qty: 1 on 10/14/2020 by Fior Grimes MD at [facility] Explanted:Qty: 1 on 11/15/2021 by Fior Grimes MD at [facility] Left: Chest [employer] 06/03/2022 [id number] / / [id number] Procedures Procedure Name Priority Date/Time Associated Diagnosis Comments COLONOSCOPY 01/31/2024 1:36 PM OPERATIONAL RISK MANAGER DIAGNOSTIC MAMMOGRAM BILATERAL W CHUCHO Schedule Routine, Read Routine (OP Routine) 09/18/2020 12:18 PM CDT Unspecified lump in the right breast, upper outer quadrant from Last 3 Months or Most Recently Relevant to Health Maintenance Results * Colonoscopy (01/31/2024 1:36 PM OPERATIONAL RISK MANAGER) Anatomical Region Laterality Modality Other Narrative Procedure Note Esa Bardales MD - 01/31/2024 1:36 PM [facility] Patient Name: Jeaneth Mead Procedure Date: 01/31/2024 1:36 PM Date of : 1980 Admit Type: Outpatient Age: 43 Gender: Female Attending MD: Esa Bardales M.D. Room: [facility] ENDOSCOPY ROOM 9 Note Status: Finalized Procedure: [...] The scope was passed under direct vision.The [id number] endoscope was introduced through the anus and advanced to the terminal ileum. The colonoscopy was performed without difficulty. The patient tolerated the procedure well. The qualityof the bowel preparation was evaluated using the BBPS (Hardaway Bowel Preparation Scale) with scores of:Right Colon [...] the days following this procedure please call [phone] ask for my nurse, Hannah Hancock. After hours and evenings please call [phone] and speak to theGI fellow line production cook. Please tell the fellow that Dr. Bardales [...] 0 Note Initiated On: 01/31/2024 1:36 PM Esa Bardales MD ENDOSCOPY PROCEDURES Final Result [...] with abnormally thickened cortex of 7 mm. Fredrick Fung MD IMG MAMMO PROCEDURES Julia l Result from Last 3 Months or Most Recently Relevant to Health Maintenance Insurance [facility] [id number] [facility] [id number] GENERIC COPAY ASSIST [id number] [place] [id number] Advance Directives For more information, please contact: [phone] * Full Code (Latest Code Status on File) Date Activated Date Inactivated Comments 01/31/2024 12:47 PM 01/31/2024 7:10 PM * Full Code Date Activated Date Inactivated Comments 02/15/2023 1:30 PM 02/16/2023 3:11 PM * Full Code Date Activated Date Inactivated Comments 07/01/2021 8:27 PM 07/05/2021 3:58 PM Care Teams Atomic Physics Professor Relationship Specialty Start Date End Date Lo White MD [address] [place] [address] PCP - General Internal Medicine 09/16/21 Seth Powell MD [address] [place] [address] Consulting Physician Medical Oncology 10/07/20 Jessica Rodriguez MD PhD [address] [place] [address] Radiation Oncologist Radiation Oncology 04/27/21 Fior Grimes MD [address] [address] Surgeon Surgical Oncology 01/19/22 Yazan Calderon MD [address] DIV IM ENDOCRINOLOGY, [address] [place] [address] Consulting Physician Internal Medicine 01/22/24
--- OUTSIDE RECORDS SUMMARY | 2024-08-20 17:24 | XMS_ITS | Encounter Summary ---
Author Organization [facility] Address [address] [place] [address] Phone Care Team Providers Care Coloring Machine Operator Name Role Phone No, Physician Primary Care Provider [phone] Seth Powell MD Unavailable Remigio Xavier MD Primary Care Provider [phone] Jessica Rodriguez MD PhD Unavailable No, Physician Primary Care Provider [phone] Lo White MD Primary Care Provider Fior Grimes MD Unavailable [phone] Yazan Calderon MD Unavailable Encounter Details Date Type Department Care Team (Late st Contact Info) Description 10/28/2020 Orders Only [facility] [address] [place] [address] Diana Vigil, RN Social History Tobacco Use Types Packs/Day Years Used Date Smoking Tobacco: Former Cigarettes 994 - 2013 Smokeless Tobacco: Never AUDIT-C Answer Date Recorded Q1: How often do you have a drink containing alc ohol? Monthly or less 10/07/2020 Q2: How many drinks containi ng alcohol do you have on a typical day when you are drinking? 1 or 2 10/07/2020 Q3: How often do you have si x or more drinks on one occasion? Never 10/07/2020 Comments No Sex and Gender Information Value Date Recorded Sex Assigned at Not on file Legal Sex Female 11:55 PM INDUSTRIAL MILLWRIGHT Gender Identity Not on file Sexual Orientation Straight 10/05/2020 7: 57 PM CDT documented as of this encounter Plan of Treatment Not on file documented as of this encounter Visit Diagnoses Not on filedocumented in this encounter Additional Health Concerns Infection Onset Date Last Indicated Resolved Time COVID: Suspected 03/22/2022 03/22/2022 03/23/2022 3:06 AM INDUSTRIAL MILLWRIGHT documented as of this encounter Care Teams Coloring Machine Operator Relationship Specialty Start Date End Date No, Physician PCP - General 09/22/20 10/28/20 Remigio Xavier MD [address] [place] [address] PCP - General 10/29/20 08/16/21 No, Physician PCP - General 08/23/21 09/15/21 Lo White MD [address] [place] [address] PCP - General Internal Medicine 09/16/21 Seth Powell MD [address] [place] [address] Consulting Physician Medical Oncology 10/07/20 Jessica Rodriguez MD PhD [address] [place] [address] Radiation Oncologist Radiation Oncology 04/27/21 Fior Grimes MD [address] [address] Surgeon Surgical Oncology 01/19/22 Yazan Calderon MD [address] [place] [facility] ENDOCRINOLOGY, [place] [address] Consulting Physician Internal Medicine 01/22/24 documented as of this encounter
--- OUTSIDE RECORDS SUMMARY | 2024-08-20 17:24 | XMS_ITS | Encounter Summary ---
Author Organization [facility] Address [address] [place] [address] Phone Care Team Providers Care Grain Trader Name Role Phone Seth Powell MD Unavailable Jessica Rodriguez MD PhD Unavailable [phone] Lo White MD Primary Care Provider [phone] Fior Grimes MD Unavailable [phone] Yazan Calderon MD Unavailable [phone] Encounter Details Date Type Department Care Team (Latest Contact Info) Description 07/28/2023 Orders Only [facility] Scanning, Provider Social History Tobacco Use Types Packs/Day Years Used Date Smoking Tobacco: Former Cigarettes 2013 Smokeless Tobacco: Never AUDIT-C Answer Date Recorded Q1: How often do you have a drink containing alcohol? Never 03/10/2023 Q2: How many drinks containi ng alcohol do you have on a typical day when you are drinking? Patient does not drink Q3: How often do you have si x or more drinks on one occasion? Never 03/10/2023 PHQ-2 Answer Date Recorded PHQ-2 Total Score (If total score is 3 or more points, staff should administer the PHQ-9) 0 09/16/2021 Personal Safety Answer Date Recorded Have you ever been in or are you currently in a harmful physical or emotional relationship or is someone making you feel afraid or unsafe? Denies 03/10/2023 Comments No Sex and Gender Information Value Date Recorded Sex Assigned at Not on file Legal Sex Female 11:55 PM DESIGN EDITOR Gender Identity Not on file Sexual Orientation Straight 10/05/2020 7: 57 PM CDT documented as of this encounter Plan of Treatment Not on file documented as of this encounter Procedures Procedure Name Priority Date/Time Associated Diagnosis Comments SCAN - PATHOLOGY 07/28/2023 10:17 AM CDT documented in this encounter Results * SCAN - PATHOLOGY (07/28/2023 10:17 AM CDT) us Provider Scanning Final Result documented in this encounter Visit Diagnoses Not on filedocumented in this encounter Care Teams Grain Trader Relationship Specialty Start Date End Date RamanatLo MD [address] [facility] [address] [place] [address] PCP - General Internal Medicine 09/16/21 Seth Powell MD [address] [place] [address] Consulting Physician Medical Oncology 10/07/20 Jessica Rodriguez MD PhD [address] [facility] [address] [place] [address] Radiation Oncologist Radiation Oncology 04/27/21 Fior Grimes MD [address] [address] Surgeon Surgical Oncology 01/19/22 Yazan Caledron MD [address] [facility] IM ENDOCRINOLOGY, [address] [address] Consulting Physician Internal Medicine 01/22/24 documented as of this encounter
--- OUTSIDE RECORDS SUMMARY | 2024-08-20 17:24 | XMS_ITS | Clinical Summary ---
Author Organization [facility] Address [address] [place] [address] Phone Care Team Providers Care Volcanology Professor Name Role Phone Remigio Xavier MD Primary Care Provider [phone] Allergies Active Allergy Reactions Criticality Noted Date Comments Aspirin Unknown 02/22/2017 Medications nortriptyline (PAMELOR) 10 mg capsule 7 Active verapamil (CALAN SR) 180 mg Sustained Release tablet 7 Active acetaminophen-c affeine-butalbi erica (FIORICET) 325-40-50 mg tablet 7 Active naproxen (NAPROSYN) 500 mg tablet 7 Active TRI-LINYAH 0.18/0.215/0.25 mg-35 mcg (28) tablet 7 Active cyclobenzaprine (FLEXERIL) 10 mg tablet Take 10 mg by mouth 3 times daily as needed for Spasm. Active HYDROcodone-romana taminophen (NORCO) 7.5-325 mg Tablet Take 1 Tablet by mouth every 4 hours as needed for Pain, Moderate. Active omeprazole (PriLOSEC) 20 mg Capsule, Delayed Release(E.C.)In dications:Heart burn Take 1 Capsule (20 mg) by mouth daily before breakfast. 30 Capsule 6 7 Active semaglutide, weight loss, (Wegovy) 0.5 mg/0.5 mL Pen Injector Inject 0.5 mL (0.5 mg) by subcutaneous injection every 7 days. 2 mL 1 4 Active semaglutide, weight loss, (Wegovy) 1.7 mg/0.75 mL Pen Injector Inject 0.75 mL (1.7 mg) by subcutaneous injection every 7 days. 3 mL 3 4 Active semaglutide, weight loss, (Wegovy) 1 mg/0.5 mL Pen Injector Inject 0.5 mL (1 mg) by subcutaneous injection every 7 days. 2 mL 1 4 Active Active Problems No known active problems Encounters Date Type Department Care Team Description 05/22/2024 External Device Data ST[facility] ABSTRACTION Provider, Abstract from Last 3 Months Family History Medical History Relation Name Comments Breast Cancer Other Ovarian Cancer Other Colon Cancer Neg Hx Relation Name Status Comments Other Social History Tobacco Use Types Packs/Day Years Used Date Smoking Tobacco: Former Smokeless Tobacco: Never Alcohol Use Standard Drinks/Week Comments No 0 (1 standard drink = 0.6 oz pur e alcohol) Comments No Sex and Gender Information Value Date Recorded Sex Assigned at Not on file Legal Sex Female 1:10 PM ACCESS SERVICE REPRESENTATIVE Gender Identity Not on file Sexual Orientation Not on file Last Filed Vital Signs Vital Sign Reading Time Taken Comments Blood Pressure 112/60 03/14/2017 10:27 AM ACCESS SERVICE REPRESENTATIVE Pulse 88 03/14/2017 10:12 AM ACCESS SERVICE REPRESENTATIVE Temperature 36.2 C (97.1 F) 03/14/2017 10:12 AM ACCESS SERVICE REPRESENTATIVE Respiratory Rate 16 03/14/2017 10:27 AM ACCESS SERVICE REPRESENTATIVE Oxygen Saturation 100% 03/14/2017 10:27 AM ACCESS SERVICE REPRESENTATIVE Inhaled Oxygen Concentration - - Weight 101 kg (222 lb 9.6 oz) 03/14/2017 9:20 AM ACCESS SERVICE REPRESENTATIVE Height 177.8 cm (5' 10) 03/14/2017 9:20 AM ACCESS SERVICE REPRESENTATIVE Body Mass Index 31.94 03/14/2017 9:20 AM ACCESS SERVICE REPRESENTATIVE Plan of Treatment Health Maintenance Due Date Last Done Comments DTAP/TDAP/TD VACCINES (1 - Tdap) 1997 HEPATITIS B VACCINES (1 of 3 - 19+ 3-dose series) 1997 HPV/Cotest (21-29) 09/09/1999 CERVICAL CANCER SCREENING 2008 HPV/Cotest (30-65) 2008 PAP SMEAR 2008 BREAST CANCER SCREENING 2018 FIT-DNA Q 3 years 09/09/2023 FIT/FOBT Q 1 year 09/09/2023 Flex Sig/CT Colonography Q 5 years 09/09/2023 INFLUENZA VACCINE (#1) 2023 COLORECTAL SCREENING 03/14/2027 03/14/2017 Colorectal Cancer Screening 03/14/2027 HPV VACCINES Aged Out No longer eligi ble based on patient's age to complete this topic Insurance [employer] [employer] OPEN ACCESS RX [facility] [employer] Advance Directives For more information, please contact: [phone] * Full Code (Latest Code Status on File) Date Activated Date Inactivated Comments 03/14/2017 9:29 AM 03/14/2017 12:49 PM Care Teams Volcanology Professor Relationship Specialty Start Date End Date Remigio Xavier MD [address] [place] [address] PCP - General Internal Medicine 02/08/17
[2024-08-20 17:33] VITALS: BP 143/109; PULSE 98; RESP 20; O2SAT 98
[2024-08-20 17:40] VITALS: TEMP 36.6
--- NOTE | 2024-08-20 17:48 | ED.LOWEXIN ---
HPI - Extremity Injury (Lower) General Chief Complaint: Extremity Injury, Lower Stated Complaint: left calf swelling Time Seen by Provider: 08/20/24 17:39 Source: patient Mode of arrival: ambulatory Limitations: no limitations History of Present Illness HPI Narrative: This is a 43 year old female that presents to the ER for left leg pain, swelling. Ongoing since last night. Unsure of any certain injuries. Reports she noted several knots on her calf last night. She iced the area and the swelling has improved. Today she noted the area was bruised. She was concerned for blood clots which prompted her to be seen. No previous history of blood clots. No recent travel or surgery. Denies fevers, erythema. Related Data Home Medications ?Medication ?Instructions ?Recorded ?Confirmed ?Last Taken ?Type ergocalciferol (vitamin D2) 1,250 1 unit PO WEEKLY 03/21/22 03/02/24 Unknown History mcg (50,000 unit) capsule escitalopram oxalate 20 mg tablet 20 mg PO DAILY 03/21/22 03/02/24 Unknown History tirzepatide 15 mg/0.5 mL 15 mg subcut WEEKLY 03/21/22 03/02/24 Unknown History subcutaneous pen injector (Mounjaro) tirzepatide (weight loss) 15 mg subcut 03/02/24 Unknown History mg/0.5 mL subcutaneous pen injector (Zepbound) Allergies Allergy/AdvReac Type Severity Reaction Status Date / Time aspirin Allergy Intermediate Swelling Verified 12/29/22 12:15 Review of Systems Review of Systems: CONSTITUTIONAL: Denies fever CARDIOVASCULAR: Denies chest pain RESPIRATORY: Denies dyspnea. SKIN: Denies rash All systems reviewed & are unremarkable except as noted in HPI and below PMFSH Past Medical History Medical History Breast cancer Surgical History Surgical History History of hysterectomy History of breast implant History of mastectomy Family History Family History Mother Family history non-contributory Social History Social History Smoking status: Never smoker Alcohol intake: current Alcohol use details: rarely Substance use: never Living arrangements: with family Gender identity (if verbalized by the patient): Female Sexual Orientation (if Verbalized by the Patient): Straight or Heterosexual Spiritual care concerns: No Exam Narrative: GENERAL: Well-appearing, well-nourished, and in no acute distress. HEAD: Normocephalic, atraumatic. EYES: EOMI. CHEST: No respiratory distress. HEART: Regular rate EXTREMITIES: Normal range of motion. No edema or erythema. Normal DP pulse. Normal sensation. Two areas of ecchymosis to the left calf. Compartments are soft. Normal DP pulse SKIN: Warm, dry, no rash. NEURO: No focal deficits. Alert and oriented x3. PSYCH: Normal mood and affect Course Course Emergency Course: Patient updated on her workup and agrees with plan of care Vital Signs Vital signs: Vital Signs Temperature 97.6 F 08/20/24 17:24 Pulse Rate 97 08/20/24 17:24 Respiratory Rate 16 08/20/24 17:24 Blood Pressure 150/92 H 08/20/24 17:24 Pulse Oximetry 100 08/20/24 17:24 Oxygen Delivery Room Air 08/20/24 17:24 Temperature 97.9 F 08/20/24 17:40 Pulse Rate 98 08/20/24 17:33 Respiratory Rate 20 08/20/24 17:33 Blood Pressure 143/109 H 08/20/24 17:33 Pulse Oximetry 98 08/20/24 17:33 Oxygen Delivery Room Air 08/20/24 17:24 MDM - Extremity Injury (Lower) MDM Narrative Medical decision making narrative: Patient presents to the ER for left calf pain, bruising. Ongoing since last night. She is afebrile and nontoxic appearing. She is neurovascularly intact. CBC metabolic panel without concerning findings. Coagulation studies are normal. Ultrasound venous Doppler without evidence of DVT. Patient updated on her workup and agrees with plan of care. She is to follow up with primary provider. She was given warnings to return to the ER Differential Diagnosis Differential diagnosis: Likely other (DVT, ecchymosis, thrombocytopenia, anemia) Lab Data Attestation: I reviewed the patient's lab results. 08/20/24 17:58 08/20/24 17:58 Labs: Lab Results 08/20/24 Range/Units 17:58 WBC 6.4 (4.5-10.0) K/mm3 RBC 4.24 (4.2-5.4) M/mm3 Hgb 12.9 (12.0-15.0) g/dL Hct 38.3 (37.0-47.0) % MCV 90.3 (80-100) fl MCH 30.4 (26-34) pg MCHC 33.7 (32-36) g/dl RDW 12.1 (11.5-14.5) % Plt Count 271 (150-375) k/mm3 MPV 9.2 (7.4-10.4) fl Immature Gran % (Auto) 0.2 (0-0.5) % Neut % (Auto) 54.9 (45.5-73.1) % Lymph % (Auto) 34.0 (18.3-44.2) % [place] % (Auto) 7.9 (2.6-8.5) % Eos % (Auto) 1.9 (0-4.4) % Baso % (Auto) 1.1 (0.2-1.2) % Lymph # (Auto) 2.19 (0.9-3.2) K/mm3 [place] # (Auto) 0.5 (0.1-0.6) K/mm3 Eos # (Auto) 0.1 (0-0.3) K/mm3 Baso # (Auto) 0.1 (0.0-0.1) K/mm3 Abs Immat Gran (auto) 0.01 (0.00-0.031) K/mm3 Absolute Neuts (auto) 3.5 (1.3-6.7) K/mm3 Absolute Nucleated RBC 0.000 (0.0-0.012) K/mm3 Nucleated RBC % 0.0 (0.0-0.2) % PT 12.9 (11.1-14.7) Seconds INR 1.0 APTT 27.0 (22.3-36.8) Seconds Sodium 140 (137-145) mmol/L Potassium 3.8 (3.4-5.0) mmol/L Chloride 105 (98-107) mmol/L Carbon Dioxide 28 (22-30) mmol/L Anion Gap 7 (4-12) mmol/L BUN 13 (7-17) mg/dL Creatinine 0.84 (0.7-1.0) mg/dL Estim Creat Clear Calc 90 ml/min Estimated GFR > 60 (59 - ) Glucose 98 (65-110) mg/dL Calcium 9.4 (8.4-10.2) mg/dL Total Bilirubin 0.2 (0.2-1.3) mg/dL AST 29 (14-36) U/L ALT 21 (6-35) U/L Alkaline Phosphatase 55 (38-126) U/L Total Protein 7.3 (6.3-8.2) g/dL Albumin 4.3 (3.5-5.1) g/dL Imaging Data Radiologist's impression: ITS Impressions Venous Doppler Study 08/20/24 18:10 IMPRESSION: 1. No deep venous thrombosis. Critical Care Time Critical Care Time Critical Care Time: No Discharge Plan Discharge Clinical Impression: Ecchymosis Patient Disposition: Home Condition: Stable Instructions: Contusion in Adults (ED) Additional Instructions: Return to the ER if you experience fever, redness and swelling of your extremity, numbness or any other symptoms that are concerning to you Ice and elevate extremity. Tylenol or ibuprofen as needed for pain Follow up with your primary care doctor Patient Language: Haitian Prescriptions: No Action cyclobenzaprine 10 mg tablet 10 mg PO TID PRN (Reason: muscle spasm) Qty: 20 0RF escitalopram oxalate 20 mg tablet 20 mg PO DAILY Mounjaro 15 mg/0.5 mL pen injector 15 mg SUBCUT WEEKLY ergocalciferol (vitamin D2) 1,250 mcg (50,000 unit) capsule 1 unit PO WEEKLY Zepbound 15 mg/0.5 mL pen injector SUBCUT diphenoxylate-atropine [Lomotil] 2.5-0.025 mg tablet 1 tablet PO TID PRN (Reason: diarrhea) Qty: 15 0RF Follow-up/Referrals: PHYSICIAN NOT ON STAFF,NONSTAFF [Primary Care Provider] -
--- OUTSIDE RECORDS SUMMARY | 2024-08-20 17:48 | XMS_ITS ---
Author Organization [facility] Address [address] [place] [address] Care Team Providers Care Supervisor Poultry Hatchery Name Role Phone Seth Powell MD Unavailable Jessica Rodriguez MD PhD Unavailable [phone] Lo White MD Primary Care Provider Fior Grimes MD Unavailable Yazan Calderon MD Unavailable [phone] Active Problems Problem Noted Date Diagnosed [...] (04/19/2021): Added automatically from request for surgery [id number] Encounter for weight management 10/12/2020 Malignant neoplasm of upper- outer quadrant of right breast in female, estrogen receptor negative 10/05/2020 Cancer Staging:Clinical:Stage IIB(cT2, cN1, cM0, G3, ER-, SD-, HER2+) - Signed by Jessica Rodriguez MD [...]
--- OUTSIDE RECORDS SUMMARY | 2024-08-20 17:48 | XMS_ITS | Referral Summary ---
Author Organization [facility] Address [address] [place] [address] Care Team Providers Care Accounting Systems Manager Name Role Phone Seth Powell MD Unavailable Jessica Rodriguez MD PhD Unavailable [phone] Lo White MD Primary Care Provider Fior Grimes MD Unavailable [phone] Yazan Calderon MD Unavailable [phone] Encounters Date Type Department Care Team Description 05/24/2024 Telephone [facility] Surgery [address] [facility] [address] [place] [address] Ang Slater MD from Last 3 [...] (04/19/2021): Added automatically from request for surgery [id number] Encounter for weight management 10/12/2020 Malignant neoplasm of upper- outer quadrant of right breast in female, estrogen receptor negative 10/05/2020 Cancer Staging:Clinical:Stage IIB(cT2, cN1, cM0, G3, ER-, UT-, HER2+) - Signed by Jessica Rodriguez MD [...] on file Legal Sex Female 11:55 PM SENIOR 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 Gender Identity Not on file Sexual Orientation Straight 10/05/2020 7: 57 PM CDT Last Filed Vital Signs Vital Sign Reading Time Taken Comments Blood Pressure 106/75 04/17/2024 11:08 AM SENIOR 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 DEVELOPER Pulse 110 04/17/2024 11:08 AM SENIOR 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 DEVELOPER Temperature 36.3 C (97.4 F) 04/17/2024 11:08 AM SENIOR 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 DEVELOPER Respiratory Rate 18 04/17/2024 11:08 AM SENIOR 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 DEVELOPER Oxygen Saturation 97% 04/17/2024 11:08 AM SENIOR 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 DEVELOPER Inhaled Oxygen Concentration - - Weight 92 kg (202 lb 12.8 oz) 04/17/2024 11:08 A M SENIOR 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 DEVELOPER Height 175.3 cm (5' 9) 03/27/2024 12:34 PM SENIOR 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 DEVELOPER Body Mass Index 29.95 03/27/2024 12:34 PM SENIOR 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 DEVELOPER Plan of Treatment Not on file Medical Devices Implanted Type Area Nurse Practitioner Hospitalist Device Identifier Shelf Expiration Date Model / Serial / Lot Life Cell Shana [id number] Alloderm Select [id number] Allograft Regenerative Thk.4-2.4mm Thick - Sn/A - [id number] Implanted:Qty: 1 on 03/31/2021 by Ang Slater MD at [facility] Breast Right: Breast [employer]er[employer] 04/05/2022 [id number] / N/A / [id number] Life Cell Shana [id number] Alloderm Select [id number] Allograft Regenerative Thk.4-2.4mm Thick - Sn/A - [id number] Implanted:Qty: 1 on 03/31/2021 by Ang Slater MD at [facility] Breast Left: Breast [employer]er[employer] 04/05/2022 [id number] / N/A / [id number] Synovis InVitae Allian 2753 [place] 2.5mm Ring Pin Ultrasonic Doppler 20mhz Special Procedure Tech Anastomosis Latex Free - [id number] Implanted:Qty: 1 on 07/01/2021 by Ang Slater MD at [facility] Left: Breast Synovis InVitae Allian [id number] 11/24/2025 2753 / / [id number] Synovis InVitae Allian 2752 [place] 2mm Ring Pin Ultrasonic Doppler 20mhz Special Procedure Tech Anastomosis Latex Free - [id number] Implanted:Qty: 1 on 07/01/2021 by Ang Slater MD at [facility] Left: Breast [employer] InVitae Allian [id number] 12/07/2025 2752 / / [id number] [employer] Allian 2753 [place] 2.5mm Ring Pin Ultrasonic Doppler 20mhz Special Procedure Tech Anastomosis Latex Free - [id number] Implanted:Qty: 1 on 07/01/2021 by Ang Slater MD at [facility] Right: Breast [employer] InVitae Allian [id number] 11/24/2025 2753 / / [id number] Ethicon Endo Surgery Ultrapro 6x6in Partial Absorbable Lightweight Flat Mesh Surgical Umm3 - [id number] Implanted:Qty: 1 on 07/01/2021 by Ang Slater MD at [facility] N/A: Abdomen Ethicon Endo Surgery [id number] 02/02/2026 UMM3 / / [id number] Explanted Type Area Nurse Practitioner Hospitalist Device Identifier Shelf Expiration Date Model / Serial / Lot Allergan Usa Inc Ssm-600 Natrelle Inspira Smooth Shell Surface Moderate Profile Implant 600 Cc Breast Soft Touch Sterile Latex Free - [id number] - [id number] Implanted:Qty: 1 on 03/31/2021 by Ang Slater MD at [facility] Explanted:Qty: 1 on 07/01/2021 by Ang Slater MD at [facility] Breast Right: Breast Allergan [employer] 06/01/2025 SSM-600 / [id number] / Allergan [employer]sa Inc Ssm-600 Alecia Walker Smooth Shell Surface Moderate Profile Implant 600 Cc Breast Soft Touch Sterile Latex Free - [id number] - [id number] Implanted:Qty: 1 on 03/31/2021 by Ang Slater MD at [facility] Explanted:Qty: 1 on 07/01/2021 by Ang Slater MD at [facility] Breast Left: Breast [employer] 04/08/2024 SSM-600 / [id number] / [employer] [id number] Powerport Airguard 8fr 1 Lumen Attachable Catheter Intermediate Latex Free - [id number] Implanted:Qty: 1 on 10/14/2020 by Fior Grimes MD at [facility] Explanted:Qty: 1 on 11/15/2021 by Fior Grimes MD at [facility] Left: Chest [employer] 06/03/2022 [id number] / / [id number] Procedures Procedure Name Priority Date/Time Associated Diagnosis Comments COLONOSCOPY 01/31/2024 1:36 PM SENIOR 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 DEVELOPER DIAGNOSTIC MAMMOGRAM BILATERAL W CHUCHO Schedule Routine, Read Routine (OP Routine) 09/18/2020 12:18 PM CDT Unspecified lump in the right breast, upper outer quadrant from Last 3 Months or Most Recently Relevant to Health Maintenance Results * Colonoscopy (01/31/2024 1:36 PM SENIOR 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 DEVELOPER) Anatomical Region Laterality Modality Other Narrative Procedure Note Esa Bardales MD - 01/31/2024 1:36 PM CST GI ENDOSCOPY [facility] Patient Name: Jeaneth Mead Procedure Date: 01/31/2024 1:36 PM Date of : 1980 Admit Type: Outpatient Age: 43 Gender: Female Attending MD: Esa Bardales M.D. Room: [facility] ENDOSCOPY ROOM 9 Note Status: [...] The scope was passed under direct vision.The [id number] endoscope was introduced through the anus and advanced to the terminal ileum. The colonoscopy was performed without difficulty. The patient tolerated the procedure well. The qualityof the bowel preparation was evaluated using the BBPS ([place] Bowel Preparation Scale) with scores of:Right Colon [...] the days following this procedure please call [phone] ask for my nurse, Hannah Hancock. After hours and evenings please call [phone] and speak to theGI fellow principal consulting engineer. Please tell the fellow that Dr. Bardales [...] Most Recently Relevant to Health Maintenance Insurance [facility] [id number] [facility] [id number] GENERIC COPAY ASSIST [employer] [facility] [id number] Advance Directives For more information, please contact: [phone] * Full Code (Latest Code Status on File) Date Activated Date Inactivated Comments 01/31/2024 12:47 PM 01/31/2024 7:10 PM * Full Code Date Activated Date Inactivated Comments 02/15/2023 1:30 PM 02/16/2023 3:11 PM * Full Code Date Activated Date Inactivated Comments 07/01/2021 8:27 PM 07/05/2021 3:58 PM Care Teams Accounting Systems Manager Relationship Specialty Start Date End Date Lo White MD [address] [facility] [address] [place] [address] PCP - General Internal Medicine 09/16/21 Seth Powell MD [address] [place] [address] Consulting Physician Medical Oncology 10/07/20 Jessica Rodriguez MD PhD [address] [facility] [address] [place] [address] Radiation Oncologist Radiation Oncology 04/27/21 Fior Grimes MD [address] [address] Surgeon Surgical Oncology 01/19/22 Yazan Calderon MD [address] IM ENDOCRINOLOGY, [address] [address] Consulting Physician Internal Medicine 01/22/24
--- OUTSIDE RECORDS SUMMARY | 2024-08-20 17:48 | XMS_ITS | Encounter Summary ---
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 Gender Identity Not on file Sexual Orientation [...] on filedocumented in this encounter Care Teams Clinical Quality Rn Relationship Specialty Start Date End Date Lo White MD [address] [place] [address] PCP - General Internal Medicine 09/16/21 Seth Powell MD [address] [place] [address] Consulting Physician Medical Oncology 10/07/20 Jessica Rodriguez MD PhD [address] [place] [address] Radiation Oncologist Radiation Oncology 04/27/21 Fior Grimes MD [address] [facility] [address] [address] Surgeon Surgical Oncology 01/19/22 Yazan Calderon MD [address] IM ENDOCRINOLOGY, [facility] [address] [place] [address] Consulting Physician Internal Medicine 01/22/24 documented as of this encounter
--- OUTSIDE RECORDS SUMMARY | 2024-08-20 17:48 | XMS_ITS | Encounter Summary ---
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 Gender Identity Not on file Sexual Orientation [...] on filedocumented in this encounter Care Teams Yacht Master Relationship Specialty Start Date End Date RamanatLo MD [address] [facility] [address] [place] [address] PCP - General Internal Medicine 09/16/21 Seth Powell MD [address] [place] [address] Consulting Physician Medical Oncology 10/07/20 Jessica Rodriguez MD PhD [address] [facility] [address] [place] [address] Radiation Oncologist Radiation Oncology 04/27/21 Fior Grimes MD [address] [address] Surgeon Surgical Oncology 01/19/22 Yazan Calderon MD [address] [facility] IM ENDOCRINOLOGY, [address] [address] Consulting Physician Internal Medicine 01/22/24 documented as of this encounter
--- OUTSIDE RECORDS SUMMARY | 2024-08-20 17:48 | XMS_ITS | Clinical Summary ---
Author Organization [facility] Address [address] [place] [address] Care Team Providers Care Lead Applier Name Role Phone Seth Powell MD Unavailable Jessica Rodriguez MD PhD Unavailable [phone] Lo White MD Primary Care Provider Fior Grimes MD Unavailable [phone] Yazan Calderon MD Unavailable [phone] Allergies Active Allergy Reactions Criticality Noted [...] (04/19/2021): Added automatically from request for surgery [id number] Encounter for weight management 10/12/2020 Malignant neoplasm of upper- outer quadrant of right breast in female, estrogen receptor negative 10/05/2020 Cancer Staging:Clinical:Stage IIB(cT2, cN1, cM0, G3, ER-, NE-, HER2+) - Signed by Jessica Rodriguez MD PhD on 04/27/2021 Pathologic: ypT0, ypN0, cM0 - Unsigned Encounters Date Type Department Care Team Description 05/24/2024 Telephone [facility] Surgery [address] [place] [address] [address] [place] [address] Ang Slater [...] on file Legal Sex Female 11:55 PM ASSEMBLER FOR PULLER OVER HAND Gender Identity Not on file Sexual Orientation [...] Comments Blood Pressure 106/75 04/17/2024 11:08 AM ASSEMBLER FOR PULLER OVER HAND Pulse 110 04/17/2024 11:08 AM ASSEMBLER FOR PULLER OVER HAND Temperature 36.3 C (97.4 F) 04/17/2024 11:08 AM ASSEMBLER FOR PULLER OVER HAND Respiratory Rate 18 04/17/2024 11:08 AM ASSEMBLER FOR PULLER OVER HAND Oxygen Saturation 97% 04/17/2024 11:08 AM ASSEMBLER FOR PULLER OVER HAND Inhaled Oxygen Concentration - - Weight 92 kg (202 lb 12.8 oz) 04/17/2024 11:08 A M ASSEMBLER FOR PULLER OVER HAND Height 175.3 cm (5' 9) 03/27/2024 12:34 PM ASSEMBLER FOR PULLER OVER HAND Body Mass Index 29.95 03/27/2024 12:34 PM ASSEMBLER FOR PULLER OVER HAND Plan of Treatment Health Maintenance Due Date [...] this topic Medical Devices Implanted Type Area Ambulance Mechanic Device Identifier Shelf Expiration Date Model / Serial / Lot Life Cell Shana [id number] Alloderm Select [id number] Allograft Regenerative Thk.4-2.4mm Thick - Sn/A - [id number] Implanted:Qty: 1 on 03/31/2021 by Ang Slater MD at [facility] Breast Right: Breast [employer] 04/05/2022 [id number] / N/A / [id number] Life Cell Shana [id number] Alloderm Select [id number] Allograft Regenerative Thk.4-2.4mm Thick - Sn/A - [id number] Implanted:Qty: 1 on 03/31/2021 by Ang Slater MD at [facility] Breast Left: Breast [employer] 04/05/2022 [id number] / N/A / [id number] Synovis CoNarrative Allian 2753 [place] 2.5mm Ring Pin Ultrasonic Doppler 20mhz Underground Bolting Machine Operator Anastomosis Latex Free - [id number] Implanted:Qty: 1 on 07/01/2021 by Ang Slater MD at [facility] Left: Breast [employer] Allian [id number] 11/24/2025 2753 / / [id number] [employer]is CoN[employer] Allian 2752 [place] 2mm Ring Pin Ultrasonic Doppler 20mhz Underground Bolting Machine Operator Anastomosis Latex Free - [id number] Implanted:Qty: 1 on 07/01/2021 by Ang Slater MD at [facility] Left: Breast [employer] Allian [id number] 12/07/2025 2752 / / [id number] Synovis CoNarrative Allian 275[address] [place] 2.5mm Ring Pin Ultrasonic Doppler 20mhz Underground Bolting Machine Operator Anastomosis Latex Free - [id number] Implanted:Qty: 1 on 07/01/2021 by Ang Slater MD at [facility] Right: Breast [employer] Allian [id number] 11/24/2025 2753 / / [id number] Ethicon Endo Surgery Ultrapro 6x6in Partial Absorbable Lightweight Flat Mesh Surgical Umm3 - [id number] Implanted:Qty: 1 on 07/01/2021 by Ang Slater MD at [facility] N/A: Abdomen Ethicon Endo Surgery [id number] 02/02/2026 UMM3 / / [id number] Explanted Type Area Ambulance Mechanic Device Identifier Shelf Expiration Date Model / Serial / Lot Allergan Usa Inc Ssm-600 Natrelle Inspira Smooth Shell Surface Moderate Profile Implant 600 Cc Breast Soft Touch Sterile Latex Free - [id number] - [id number] Implanted:Qty: 1 on 03/31/2021 by Ang Slater MD at [facility] Explanted:Qty: 1 on 07/01/2021 by Ang Slater MD at [facility] Breast Right: Breast Allergan [employer] 06/01/2025 SSM-600 / [id number] / Allergan [employer]sa Inc Ssm-600 Natrelle Inspira Smooth Shell Surface Moderate Profile Implant 600 Cc Breast Soft Touch Sterile Latex Free - [id number] - [id number] Implanted:Qty: 1 on 03/31/2021 by Ang Slater MD at [facility] Explanted:Qty: 1 on 07/01/2021 by Ang Slater MD at [facility] Breast Left: Breast All[employer] 04/08/2024 SSM-600 / [id number] / [employer] Access [employer] [id number] Powerport Airguard 8fr 1 Lumen Attachable Catheter Intermediate Latex Free - [id number] Implanted:Qty: 1 on 10/14/2020 by Fior Grimes MD at [facility] Explanted:Qty: 1 on 11/15/2021 by Fior Grimes MD at [facility] Left: Chest [employer] 06/03/2022 [id number] / / [id number] Procedures Procedure Name Priority Date/Time Associated Diagnosis Comments COLONOSCOPY 01/31/2024 1:36 PM ASSEMBLER FOR PULLER OVER HAND DIAGNOSTIC MAMMOGRAM BILATERAL W CHUCHO Schedule Routine, Read Routine (OP Routine) 09/18/2020 12:18 PM CDT Unspecified lump in the right breast, upper outer quadrant from Last 3 Months or Most Recently Relevant to Health Maintenance Results * Colonoscopy (01/31/2024 1:36 PM ASSEMBLER FOR PULLER OVER HAND) Anatomical Region Laterality Modality Other Narrative Procedure Note Esa Bardales MD - 01/31/2024 1:36 PM CST GI ENDOSCOPY [facility] Patient Name: Jeaneth Mead Procedure Date: 01/31/2024 1:36 PM Date of : 1980 Admit Type: Outpatient Age: 43 Gender: Female Attending MD: Esa Bardales M.D. [facility] 9 Note Status: Finalized [...] The scope was passed under direct vision.The [id number] endoscope was introduced through the anus and advanced to the terminal ileum. The colonoscopy was performed without difficulty. The patient tolerated the procedure well. The qualityof the bowel preparation was evaluated using the BBPS ([place] Bowel Preparation Scale) with scores of:Right Colon [...] the days following this procedure please call [phone] ask for my nurse, Hannah Hancock. After hours and evenings please call [phone] and speak to theGI fellow rn admission. Please tell the fellow that Dr. Bardales [...] Relevant to Health Maintenance Insurance [facility] [id number] [facility] [id number] GENERIC COPAY ASSIST [id number] [place] [id number] Advance Directives For more information, please contact: [phone] * Full Code (Latest Code Status on File) Date Activated Date Inactivated Comments 01/31/2024 12:47 PM 01/31/2024 7:10 PM * Full Code Date Activated Date Inactivated Comments 02/15/2023 1:30 PM 02/16/2023 3:11 PM * Full Code Date Activated Date Inactivated Comments 07/01/2021 8:27 PM 07/05/2021 3:58 PM Care Teams Lead Applier Relationship Specialty Start Date End Date Lo White MD [address] [place] [address] PCP - General Internal Medicine 09/16/21 Seth Powell MD [address] [place] [address] Consulting Physician Medical Oncology 10/07/20 Jessica Rodriguez MD PhD [address] [place] [address] Radiation Oncologist Radiation Oncology 04/27/21 Fior Grimes MD [address] [address] Surgeon Surgical Oncology 01/19/22 Yazan Calderon MD [address] IM ENDOCRINOLOGY, [facility] [address] [place] [address] Consulting Physician Internal Medicine 01/22/24
--- OUTSIDE RECORDS SUMMARY | 2024-08-20 17:48 | XMS_ITS | Encounter Summary ---
Author Organization [facility] [employer] [facility] Address [address] [place] [address] Phone Care Team Providers Care Laminator Preforms Name Role Phone No, Physician Primary Care Provider [phone] Seth Powell MD Unavailable Remigio Xavier MD Primary Care Provider [phone] Jessica Rodriguez MD PhD Unavailable No, Physician Primary Care Provider Lo White MD Primary Care Provider Fior Grimes MD Unavailable Yazan Calderon MD Unavailable [phone] Encounter Details Date Type Department Care Team (Late st Contact Info) Description 10/28/2020 Orders Only [facility] Oncology [address] [place] [address] Diana Vigil, RN Social History Tobacco Use [...] on file Legal Sex Female 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 Gender Identity Not on file Sexual Orientation Straight 10/05/2020 7: 57 PM CDT documented as of this encounter Plan of Treatment Not on file documented as of this encounter Visit Diagnoses Not on filedocumented in this encounter Additional Health Concerns Infection Onset Date Last Indicated Resolved Time COVID: Suspected 03/22/2022 03/22/2022 03/23/2022 3:06 AM 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 documented as of this encounter Care Teams Laminator Preforms Relationship Specialty Start Date End Date No, Physician PCP - General 09/22/20 10/28/20 Remigio Xavier MD [address] [place] [address] PCP - General 10/29/20 08/16/21 No, Physician PCP - General 08/23/21 09/15/21 Lo White MD [address] [place] [address] PCP - General Internal Medicine 09/16/21 Seth Powell MD [address] [place] [address] Consulting Physician Medical Oncology 10/07/20 Jessica Rodriguez MD PhD [address] [place] [address] Radiation Oncologist Radiation Oncology 04/27/21 Fior Grimes MD [address] [address] Surgeon Surgical Oncology 01/19/22 Yazan Calderon MD [address] [facility] ENDOCRINOLOGY, [place] [address] Consulting Physician Internal Medicine 01/22/24 documented as of this encounter
--- OUTSIDE RECORDS SUMMARY | 2024-08-20 17:48 | XMS_ITS | Encounter Summary ---
Author Organization [facility] Address [address] [place] [address] Phone Care Team Providers Care Atmospheric Scientist Name Role Phone Seth Powell MD Unavailable Jessica Rodriguez MD PhD Unavailable [phone] Lo White MD Primary Care Provider Fior Grimes MD Unavailable [phone] Yazan Calderon MD Unavailable [phone] Encounter Details Date Type Department Care [...] on file Legal Sex Female 11:55 PM FUSE SPOOLER Gender Identity Not on file Sexual Orientation [...] on filedocumented in this encounter Care Teams Atmospheric Scientist Relationship Specialty Start Date End Date Lo White MD [address] [place] [address] PCP - General Internal Medicine 09/16/21 Seth Powell MD [address] [place] [address] Consulting Physician Medical Oncology 10/07/20 Jessica Rodriguez MD PhD [address] [place] [address] Radiation Oncologist Radiation Oncology 04/27/21 Fior Grimes MD [address] [address] Surgeon Surgical Oncology 01/19/22 Yazan Calderon MD [address] DIV IM ENDOCRINOLOGY, [facility] [address] [place] [address] Consulting Physician Internal Medicine 01/22/24 documented as of this encounter
--- OUTSIDE RECORDS SUMMARY | 2024-08-20 17:48 | XMS_ITS | Clinical Summary ---
Author Organization [facility] Address [address] [place] [address] Phone Care Team Providers Care General Service Technician Name Role Phone Remigio Xavier MD Primary Care Provider [phone] Allergies Active Allergy Reactions Criticality Noted Date [...] on file Legal Sex Female 1:10 PM GLASS TECHNICIAN Gender Identity Not on file Sexual Orientation Not on file Last Filed Vital Signs Vital Sign Reading Time Taken Comments Blood Pressure 112/60 03/14/2017 10:27 AM GLASS TECHNICIAN Pulse 88 03/14/2017 10:12 AM GLASS TECHNICIAN Temperature 36.2 C (97.1 F) 03/14/2017 10:12 AM GLASS TECHNICIAN Respiratory Rate 16 03/14/2017 10:27 AM GLASS TECHNICIAN Oxygen Saturation 100% 03/14/2017 10:27 AM GLASS TECHNICIAN Inhaled Oxygen Concentration - - Weight 101 kg (222 lb 9.6 oz) 03/14/2017 9:20 AM GLASS TECHNICIAN Height 177.8 cm (5' 10) 03/14/2017 9:20 AM GLASS TECHNICIAN Body Mass Index 31.94 03/14/2017 9:20 AM GLASS TECHNICIAN Plan of Treatment Health Maintenance Due Date [...] patient's age to complete this topic Insurance [employer] OPEN ACCESS RX [facility] [employer] Advance Directives For more information, please contact: [phone] * Full Code (Latest Code Status on File) Date Activated Date Inactivated Comments 03/14/2017 9:29 AM 03/14/2017 12:49 PM Care Teams General Service Technician Relationship Specialty Start Date End Date Remigio Xavier MD [address] [place] [address] PCP - General Internal Medicine 02/08/17
--- OUTSIDE RECORDS SUMMARY | 2024-08-20 17:48 | XMS_ITS | Encounter Summary ---
Author Organization [facility] Healthcare Address [address] [place] [address] Care Team Providers Care Swimming Pool Servicer Name Role Phone No, Physician Primary Care Provider [phone] Seth Powell MD Unavailable Remigio Xavier MD Primary Care Provider [phone] Jessica Rodriguez MD PhD Unavailable [phone] No, Physician Primary Care Provider [phone] Lo White MD Primary Care Provider [phone] Fior Grimes MD Unavailable Yazan Calderon MD Unavailable [phone] Encounter Details Date Type Department Care Team (Late st Contact Info) Description 10/02/[address] [id number] Hollie Arevalo, YOHANA Social History Tobacco Use [...] on file Legal Sex Female 11:55 PM RECONCILIATION CLERK Gender Identity Not on file Sexual Orientation Straight 10/05/2020 7: 57 PM CDT documented as of this encounter Plan of Treatment Not on file documented as of this encounter Visit Diagnoses Not on filedocumented in this encounter Additional Health Concerns Infection Onset Date Last Indicated Resolved Time COVID: Suspected 03/22/2022 03/22/2022 03/23/2022 3:06 AM RECONCILIATION CLERK documented as of this encounter Care Teams Swimming Pool Servicer Relationship Specialty Start Date End Date No, Physician PCP - General 09/22/20 10/28/20 Remigio Xavier MD [address] [place] [address] PCP - General 10/29/20 08/16/21 No, Physician PCP - General 08/23/21 09/15/21 Lo White MD [address] [place] [address] PCP - General Internal Medicine 09/16/21 Seth Powell MD [address] [place] [address] Consulting Physician Medical Oncology 10/07/20 Jessica Rodriguez MD PhD [address] [place] [address] Radiation Oncologist Radiation Oncology 04/27/21 Fior Grimes MD [address] [facility] [address] [place] [address] Surgeon Surgical Oncology 01/19/22 Yazan Calderon MD [address] DIV IM ENDOCRINOLOGY, [facility] [address] [place] [address] Consulting Physician Internal Medicine 01/22/24 documented as of this encounter
[2024-08-20] MEDS: ACETAMINOPHEN 500 MG TABLET 1000 MG PO (17:57)
[2024-08-20 18:03] LABS: Basophils Absolute Auto 0.1 K/mm3 (0.0-0.1); Basophils Percent Auto 1.1 % (0.2-1.2); Eosinophils Absolute Auto 0.1 K/mm3 (0-0.3); Eosinophils Percent Auto 1.9 % (0-4.4); Hematocrit 38.3 % (37.0-47.0); Hemoglobin 12.9 g/dL (12.0-15.0); Immature Granulocyte Absolute 0.01 K/mm3 (0.00-0.031); Immature Granulocyte Percent A 0.2 % (0-0.5); Lymphocytes Absolute Auto 2.19 K/mm3 (0.9-3.2); Mean Corpuscular HGB Conc 33.7 g/dl (32-36); Mean Corpuscular Hemoglobin 30.4 pg (26-34); Mean Corpuscular Volume 90.3 fl (80-100); Mean Platelet Volume 9.2 fl (7.4-10.4); Monocytes Absolute Auto 0.5 K/mm3 (0.1-0.6); Monocytes Percent Auto 7.9 % (2.6-8.5); Neutrophils Absolute Auto 3.5 K/mm3 (1.3-6.7); Neutrophils Percent Auto 54.9 % (45.5-73.1); Platelet Count Result 271 k/mm3 (150-375); Red Blood Count 4.24 M/mm3 (4.2-5.4); Red Cell Distribution Width 12.1 % (11.5-14.5); White Blood Count 6.4 K/mm3 (4.5-10.0)
[2024-08-20 18:13] LABS: Alanine Aminotransferase 21 U/L (6-35); Albumin Level 4.3 g/dL (3.5-5.1); Alkaline Phosphatase 55 U/L (38-126); Anion Gap 7 mmol/L (4-12); Aspartate Amino Transferase 29 U/L (14-36); Bilirubin,Total 0.2 mg/dL (0.2-1.3); Blood Urea Nitrogen 13 mg/dL (7-17); Calcium 9.4 mg/dL (8.4-10.2); Carbon Dioxide 28 mmol/L (22-30); Chloride 105 mmol/L (98-107); Estimated CRCL calculation 90 ml/min; Estimated Glomerular Filt Rate > 60; Glucose 98 mg/dL (65-110); Potassium 3.8 mmol/L (3.4-5.0); Sodium 140 mmol/L (137-145); Total Protein 7.3 g/dL (6.3-8.2)
[2024-08-20 18:14] LABS: Prothrombin Time 12.9 Seconds (11.1-14.7)
== END 2024-08-20 18:39 | disposition home or self-care (01) ==
PROVIDERS: Emergency Provider Physician Assistant
DX: R23.3 Spontaneous ecchymoses (principal); Z85.3 Personal history of malignant neoplasm of breast
CPT/HCPCS: 36415; 80053; 85025; 85610; 85730; 93971; 99284; A9270